=== PATIENT | female | born 1975 | race Two or more races ===

== ENCOUNTER → 2016-07-31 | Outpatient (CLI) | payer OTHER ==
--- NOTE | 2016-08-15 00:43 | ECWPNPC ---
PATIENT NAME: YEE COSTA : 1975 GENDER: FEMALE VISIT DATE: 07/31/2016 DISCHARGE DATE: 07/31/16 1328 VISIT LOCKED DATE TIME: PHYSICIAN: MANA GROSSMAN RESOURCE: MANA GROSSMAN REASON FOR APPOINTMENT 1. NECK, BACK WC HISTORY OF PRESENT ILLNESS NEW PATIENT CONSULT: WHEN DID YOUR PAIN FIRST START? . BRIEFLY DESCRIBE HOW YOUR PAIN STARTED? . HOW DOES YOUR PAIN CHANGE WITH TIME? . DOES YOUR PAIN AWAKEN YOU FROM SLEEP? . HOW MANY HOURS OF SLEEP DO YOU NORMALLY GET? . ANY DIAGNOSTIC TESTING? . FACILITY WHERE TESTS WERE DONE? ____. PAIN TREATMENT TREATMENT YES CANCER HAVE YOU EVER HAD ANY TYPE OF CANCER?NO NO. 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 REPORTS IMMEDIATE POPPING, HEADACHE AND PAIN IN NECK AND BACK. WAS ABLE TO FINISH SHIFT BUT WENT TO DOCTORS' AT THE NEXT DAY - WAS ORIGINALLY SEEN BY DR OSEGUERA, DR GALARZA AND Balaji ALCOCER. WAS TAKEN OUT OF WORK BY DR GALARZA. THEY DID PT AND SOME INJECTIONS. WAS THEN SEEN BY DR HUGGINS AT [facility] WHO DID SURGERY ON 10/21/14. HAD SIGNIFICANT POST OP PAIN AND A VERY SLOW RECOVERY. PRIOR TO SURGERY HAD PAIN RADIATING TO BOTH LEGS AND THIS IMPROVED AFTER SURGERY FOR A FEW MONTHS. PAIN BEGAN TO RETURN AND PAIN NOW RADIATES TO BOTH ANKLES. HIPS AREA PAIN IS THE WORST. DID PT X COURSES POST OP WITH COMPLETION [address] HUGGINS IS IN PROCESS OF UPDATING MRI'S OF NECK AND LOW BACK. HAS BEEN HAVING PAIN RADIATING TO ARMSTO BOTH HANDS TO THUMBS. DOES NOT RECALL HAVING A EMG/NCS FOR THE NECK OR LOW BACK ISSUE. HARDEST ACT ACTIVINY IS TO WALK UP STAIRS SECONDARY TO BACK PAIN. SLEEP IS DISRUPTED BY PAIN - GETS 1-2 HOURS SLEEP AT A TIME. NO LOSS OF BOWEL OR BLADDER CONTROL. HAD FALL DOWN STAIRS AT HOME IN LAST FEW MONTHS - INJURED RIGHT ANKLE AND SCRAPED HAND AND KNEES. REPORTS LYRICA IS HELPFUL FOR PAIN, IS BELUCA IS NOT EFFECTIVE. AMITRIPTYLINE HELPS WITH SLEEP. . CURRENT MEDICATIONS TAKING PREMPRO 0.625-5 MG TABLET 1 TABLET ORALLY ONCE A DAY TAKING METOPROLOL SUCCINATE ER 50 MG TABLET EXTENDED RELEASE 24 HOUR 1 TABLET ORALLY ONCE A DAY TAKING VENLAFAXINE HCL ER 150 MG CAPSULE EXTENDED RELEASE 24 HOUR 1 CAPSULE WITH FOOD ORALLY ONCE A DAY TAKING VENLAFAXINE HCL ER 37.5 MG TABLET EXTENDED RELEASE 24 HOUR 1 TABLET WITH FOOD ORALLY ONCE A DAY TAKING OMEPRAZOLE 40 MG CAPSULE DELAYED RELEASE 1 CAPSULE ORALLY ONCE A DAY TAKING ZYRTEC ALLERGY 10 MG TABLET 1 TABLET ORALLY ONCE A DAY TAKING SINGULAIR 10 MG TABLET 1 TABLET IN THE EVENING ORALLY ONCE A DAY TAKING VITAMIN D HIGH POTENCY 1000 UNIT CAPSULE 5 CAPSULE ORALLY ONCE A DAY TAKING HYDROXYZINE HCL 50 MG TABLET 1 TABLET NEEDED ORALLY BEFORE BEDTIME TAKING AMITRIPTYLINE HCL 25 MG TABLET 1 TABLET ORALLY BEFORE BEDTIME TAKING LYRICA 150 MG CAPSULE 1 CAPSULE ORALLY THREE TIMES DAILY TAKING BELBUCA 300 MCG FILM 1 FILM TO THE GUM BUCALLY EVERY 12 HRS TAKING TIZANIDINE HCL 2 MG TABLET 1 TABLET NEEDED ORALLY BEFORE BEDTIME TAKING HYDROCODONE-ACETAMINOPHEN 10-325 MG TABLET 1 TABLET NEEDED ORALLY EVERY 6 HRS TAKING TIZANIDINE HCL 2 MG TABLET 1 TABLET NEEDED ORALLY THREE TIMES A DAY TAKING ROBAXIN 500 MG TABLET 1 CAP ORALLY EVERY 4 HRS PRN TAKING ALBUTEROL SULFATE (5 MG/ML) 0.5% NEBULIZATION SOLUTION 0.5 ML INHALATION THREE TIMES A DAY PRN TAKING XANAX 0.5 MG TABLET 1 TABLET ORALLY TWICE A DAY PRN MEDICATION LIST REVIEWED AND RECONCILED WITH THE PATIENT PAST MEDICAL HISTORY HYPERTENSION ASTHMA GERD ARTHRITIS ALLERGIES N.K.D.A. SURGICAL HISTORY RIGHT HAND 4TH DIGIT TEND[facility] 08/1999 GASTRIC BYPASS ([facility]) 03/2000 CHOLECYSTECTOMY, HERNIA REPAIR ([facility]) 03/2000 HYSTEROSCOPY AND D & C X 4 ([facility]) [phone] HYSTEROSCOPY ([facility]) 2006 [facility] & O [facility] 08/2012 LUMBAR FUSION L4, L5, S1 WITH LAMINECTOMY, DECOMPRESSION ([facility]) 10/2014 COLPOSCOPY WITH BIOPSIES ([facility]) [id number] FAMILY HISTORY FATHER: NO MEDICAL HISTORY KNOWN MOTHER: 63 YRS, ETOH, DRUG ABUSE, HYPERLIPIDEMIA, DIAGNOSED WITH HYPERTENSION SIBLINGS: 2 SIBLINGS WITH UNKNOWN MEDICAL HISTORY SOCIAL HISTORY GENERAL: TOBACCO USE ARE YOU A:NONSMOKER ALCOHOL SCREENING POINTS4 INTERPRETATIONPOSITIVE RECREATIONAL DRUG USE DRUG USE?NO CAFFEINE: YES CAFFEINE USE?YES HOW OFTEN AND HOW MUCH? 2-3 C COFFEE PER DAY, 1 C TEA PER DAY ANGLICAN [id number] NONE LEARNING BARRIERS / SPECIAL NEEDS CHANGE FROM LAST VISIT?NO BARRIERS TO LEARNING?NO HEARING IMPAIRED?NO VISION IMPAIRED?YES :CORRECTIVE LENSES COGNITIVELY IMPAIRED?NO READINESS TO LEARN?NO LEARNING PREFERENCES?NO LEARNING CAPABILITIES PRESENT?NO EMOTIONAL BARRIERS?NO SPECIAL DEVICES?NO SHAREPOINT DESIGNER DEVELOPER NEEDED?NO PAIN CLINIC PFS, CLERGY, PUBLIC HEALTH REFERRALS CLERGY REFERRAL NEEDED?NO WAS THE PROVIDER NOTIFIED OF ANY PERTINENT INFO?NO PFS REFERRAL NEEDED?NO PUBLIC HEALTH REFERRAL NEEDED?NO PATIENT: ____. ADVANCED DIRECTIVES HEALTH CARE PROXY?YES NAME OF HCP JUDY COSTA CONTACT # FOR HCP [phone] DO YOU HAVE A COPY WITH YOU?NO DO YOU HAVE A DNR?NO WOULD YOU LIKE MORE INFORMATION?NO LIVING WILL?NO WOULD YOU LIKE MORE INFORMATION?NO POWER OF CLINICAL RESOURCE NURSE?NO HOSPITALIZATION/MAJOR DIAGNOSTIC PROCEDURE SURGERIES REVIEW OF SYSTEMS CONSTITUTIONAL: ANY CHANGE IN YOUR MEDICAL CONDITION? NO . CHILLS NO . FEVER NO . INFECTION: DO YOU HAVE NEW INFECTIONS? NO . 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 MUSCULOSKELETAL: ANY NEW PATTERNS OF PAIN OR NUMBNESS? NO . SYTEMIC LUPUS NO . GASTROENTEROLOGY: ANY NEW CHANGE IN BOWEL CONTROL? NO . BARRETTS ESOPHAGUS NO . CIRRHOSIS NO . HEPATITIS NO . LIVER FAILURE NO . ACID REFLUX YES . UNEXPLAINED WEIGHT LOSS NO . GENITOURINARY: ANY NEW CHANGE IN BLADDER CONTROL? NO . IS THERE A CHANCE YOU COULD BE ? NO . HEMATOLOGY/LYMPH: DO YOU TAKE ANY BLOOD THINNERS? (FOR EXAMPLE- COUMADIN, PLAVIX, AGGRENOX, PLATEL, PRADAXA, OR XARELTO) NO . WHEN WAS YOUR LAST DOSE? DATE: TIME: . LOW PLATELET COUNT NO . SICKLE CELL DISEASE NO . VON WILLIEBRANDS NO . FACTOR V LEIDEN NO . THALLASEMIA NO . ANEMIA NO . EASY BRUISING YES, ON ARMS AND LEGS, STATES HAS NEVER SEEN A GREEN WARE CASTER, STATES HAS HAD THIS FOR A LONG TIME, ARMS AND LEGS, NOT ON ANTICOAGULANTS, SPONTANEOUS, TRUNK . NEUROLOGY: HAVE YOU FALLEN IN THE PAST 6 MONTHS? YES . ANY NEW EXTREMITY NUMBNESS OR WEAKNESS? NO . HEAD INJURY NO . DEMENTIA NO . CEREBRAL PALSY NO . MULTIPLE SCLEROSIS NO . DIZZINESS NO . HEADACHE ASSOCIATED WITH NAUSEA, ASSOCIATED WITH PHOTOPHOBIA, BILATERAL, BITEMPORAL , DIFFUSE, DULL ACHE, FRONTAL, INFREQUENT , MILD, OCCIPITAL, PRESSURE, TEMPORAL, ADMITS, THROBBING . STROKES NO . VERTIGO NO . CARDIOLOGY: DO YOU HAVE A PACEMAKER OR DEFIBRILLATOR? NO . ANGINA NO . HEART ATTACK NO . HEART SURGERY NO . CONGESTIVE HEART FAILURE/FLUID OVERLOAD NO . CHEST PAIN NO . HIGH BLOOD PRESSURE ON MEDICATION(S) . IRREGULAR HEART BEAT NO . RESPIRATORY: HAVE YOU BEEN SICK IN THE PAST WEEK? NO . FEVER NO . FLU LIKE SYMPTOMS? NO . CPAP NO . BYPAP NO . ASTHMA YES . EMPHYSEMA NO . CHRONIC LUNG DISEASES NO . SHORTNESS OF BREATH ON EXERTION YES . DO YOU USE ANY TYPE OF TOBACCO (SMOKE, SMOKELESS, CHEW)? NO . COUGH NO . SNORING YES . INTEGUMENTARY: DO YOU HAVE ANY RASHES OR OPEN SORES? NO . ALLERGIC/IMMUNO: ARE YOU ALLERGIC TO SHELLFISH OR IV DYE? NO . ANY NEW ALLERGIES? NO . PSYCHIATRIC: DO YOU HAVE THOUGHTS OF HURTING YOURSELF OR SOMEONE ELSE? NO . ARE YOU ABUSED, NEGLECTED, OR IN AN UNSAFE ENVIRONMENT? NO . ENDOCRINOLOGY: ARE YOU DIABETIC? NO . THYROID DISORDER NO . OTHER: DO YOU NEED ANY PRESCRIPTIONS? NO . IF YES, PLEASE LIST: ____ . ANY NEW PROBLEMS WITH YOUR MEDICATIONS? NO . WHEN DID YOU LAST EAT? ____ . WHEN DID YOU LAST DRINK? ____ . WHAT DID YOU LAST DRINK? ____ . NAME OF PERSON DRIVING YOU HOME? ____ . DO YOU HAVE ANY OTHER QUESTIONS OR CONCERNS NO . PSYCHOLOGY: ANXIETY ASSOCIATED WITH:, UNABLE TO CARE FOR FAMILY, UNABLE TO WORK . DEPRESSION AFFECTS ABILITY TO FUNCTION . REVIEWED BY: PROVIDER: MANA DAVILA . VITAL SIGNS WT 319.4 LBS, HT 65 IN, BMI 53.15 INDEX, BP 147/90 MM HG, HR 77 /MIN, RR 16 /MIN, TEMP 97.8 F, OXYGEN SAT % 97%, NA INITIALS SC 11:45, REVIEWED BY: JAVAD. EXAMINATION GENERAL EXAMINATION: PSYCHALERT , ORIENTED X 3 , APPROPRIATE MOOD AND AFFECT . HEENT:NORMOCEPHALIC. NO LYMPHADENOPATHY, NO THYROMEGLY. HEART:HEART RATE REGULAR, NORMAL S1S2, NO MURMURS, CLICK OR RUBS. MUSCULOSKELETAL:MUSCLE STRENGTH TESTING 5/5 BILATERAL UPPER NAD LOWER EXTREMITIES. TENDER WITH PALPATION OVER LUMBAR SPINOUS PROCESSES AND ACROSS LUMBO SACRAL AXIS. ABLE TO FLEX TO 30 DEGREES, EXTEND TO 10 DEGREES, AND EXPERIENCE PAIN WITH ROTATION TO EITH DIRECTION. SLR NEGATIVE. NO SPECIFIC PAIN WITH PELVIS COMPRESS OR WITH PATRICKS TESTING. . EXTREMITIES:NO EDEMA. NEUROLOGIC EXAM:NO SENSORY DEFICEIT. DTR'S 2+ LEFT, TRACE RIGHT LOWER EXTREMITES. DIAGNOSTIC TESTS REVIEWEDMRI OF LUMBAR SPINE COMPLETED 04/02/15 REVIEWED. ASSESSMENTS LUMBAR POST-LAMINECTOMY SYNDROME - M96.1 (PRIMARY) LUMBAR RADICULOPATHY - M54.16 CERVICAL DISC DISPLACEMENT - M50.20 TREATMENT LUMBAR POST-LAMINECTOMY SYNDROME START LYRICA CAPSULE, 150 MG, 1 CAPSULE, ORALLY, THREE TIMES DAILY MDD=3, 30 DAY(S), 90, REFILLS 1 NOTES: CONSIDER WEANING/STOPPING BELBUCA/AMITRIPTINE/HYDROCODONE. CONSIDER MOVING FORWARD WITH DORSAL COLUMN STIM. PROCEDURES PN WORKMANS' COMP OPINION IN YOUR OPINION, WAS THE INCIDENT THAT THE PATIENT DESCRIBED THE COMPETENT MEDICAL CAUSE OF THIS INJURY/ILLNESS? YES ARE THE PATIENT'S COMPLAINTS CONSISTENT WITH HIS/HER HISTORY OF THE INJURY/ILLNESS? YES IS THE PATIENT'S HISTORY OF THE INJURY/ILLNESS CONSISTENT WITH YOUR OBJECTIVE FINDING? YES WHAT IS THE PERCENTAGE OF TEMPORARY IMPAIRMENT? MARKED = 75% IS THE PATIENT WORKING? NO PER REFERRING PROVIDER DOCTOR ON SITE: KRISTEN STORY MD PROCEDURE CODES FA211 ESTABILISHED PATIENT [facility] FACILITY CHARGE DISPOSITION & COMMUNICATION FOLLOW UP WC -[address] HERNDON (REASON: LOW BACK/NECK) ELECTRONICALLY SIGNED BY NAM MARCOS ON 08/14/2016 AT 07:47 PM EDT DISCLAIMER : THIS IS A VISIT SUMMARY EXTRACTED FROM THE [employer] CHART. IT IS NOT A COPY OF THE [employer] PROGRESS NOTE. DAVID
== END ==
LOC: M PAIN 11:20
PROVIDERS: ATTEND Nurse Practitioner Family
DX: M96.1 Postlaminectomy syndrome, not elsewhere classified (principal); M54.16 Radiculopathy, lumbar region; M50.20 Other cervical disc displacement, unspecified cervical region; Z79.891 Long term (current) use of opiate analgesic; Z79.899 Other long term (current) drug therapy; I10 Essential (primary) hypertension; K21.9 Gastro-esophageal reflux disease without esophagitis; J45.909 Unspecified asthma, uncomplicated

== ENCOUNTER → 2016-08-27 | Outpatient (CLI) | payer OTHER ==
--- NOTE | 2016-09-07 01:03 | ECWPNPC ---
PATIENT NAME: YEE COSTA : 1975 GENDER: FEMALE VISIT DATE: 08/27/2016 DISCHARGE DATE: 08/27/16 1551 VISIT LOCKED DATE TIME: PHYSICIAN: KRISTEN HERNDON RESOURCE: KRISTEN HERNDON REASON FOR APPOINTMENT 1. WC, BACK PAIN HISTORY OF PRESENT ILLNESS HISTORY OF PRESENT ILLNESS: PAIN THE PATIENT DESCRIBES THE PAIN... 41 YEAR OLD FEMALE PATIENT WITH HISTORY OF CHRONIC LOW BACK AND NECK PAIN. PATIENT DESCRIBES THE PAIN ACHING, SHARP, STABBING, SORE, AND HAVING IT ALL THE TIME WITH A PAIN SCORE OF 5/10. 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 MRS. COSTA WAS HELPING ANOTHER NURSE IN THE BATHROOM WITH A PATIENT AND COWORKER MOVED THE PATIENT BEFORE MRS. COSTA WAS READY AND HAD TO TWIST AND THEN HEARD POPPING AND SNAPS IN HER BACK AND NECK. PATIENT USED IBUPROFEN TO HELP WITH PAIN UNTIL SHE WENT TO THE DOCTOR AND HAD XRAYS AND WAS TAKEN OUT OF WORK ROUGHLY 6 WEEKS LATER. PATIENT REPORTS HAVING INJECTIONS BEFORE BUT STATES THAT THEY DO NOT WORK AND ACTUALLY CAUSED HER LEG PAIN. PHYSICAL THERAPY DID NOT AID THE PATIENT IN PAIN RELIEF OR MOBILITY AND FUNCTIONALITY. CURRENTLY PATIENT IS USING LYRICA, BELBUCA, AND TIZANIDINE AND STATES THAT THE MEDICATION KEEPS HER MOBILE AND FUNCTIONAL. AT THIS TIME THE PATIENT STATES THAT ANY TYPE OF ACTIVITY INCREASES THE PAIN IN HER NECK AND LOWER BACK. PATIENT DENIES UNEXPLAINABLE WEIGHT LOSS, FEVER, CHILLS, NEW CHANGES ON HER URINARY OR BOWEL CONTROL. FALL RISK SCREENING: SCREENING :NO FALLS IN THE PAST YEAR CURRENT MEDICATIONS TAKING LYRICA 150 MG CAPSULE 1 CAPSULE ORALLY THREE TIMES DAILY MDD=3 TAKING PREMPRO 0.625-5 MG TABLET 1 TABLET ORALLY ONCE A DAY TAKING METOPROLOL SUCCINATE ER 50 MG TABLET EXTENDED RELEASE 24 HOUR 1 TABLET ORALLY ONCE A DAY TAKING VENLAFAXINE HCL ER 150 MG CAPSULE EXTENDED RELEASE 24 HOUR 1 CAPSULE WITH FOOD ORALLY ONCE A DAY TAKING VENLAFAXINE HCL ER 37.5 MG TABLET EXTENDED RELEASE 24 HOUR 1 TABLET WITH FOOD ORALLY ONCE A DAY TAKING OMEPRAZOLE 40 MG CAPSULE DELAYED RELEASE 1 CAPSULE ORALLY ONCE A DAY TAKING ZYRTEC ALLERGY 10 MG TABLET 1 TABLET ORALLY ONCE A DAY TAKING SINGULAIR 10 MG TABLET 1 TABLET IN THE EVENING ORALLY ONCE A DAY TAKING VITAMIN D HIGH POTENCY 1000 UNIT CAPSULE 5 CAPSULE ORALLY ONCE A DAY TAKING HYDROXYZINE HCL 50 MG TABLET 1 TABLET NEEDED ORALLY BEFORE BEDTIME TAKING LYRICA 150 MG CAPSULE 1 CAPSULE ORALLY THREE TIMES DAILY TAKING BELBUCA 300 MCG FILM 1 FILM TO THE GUM BUCALLY EVERY 12 HRS, NOTES: HAS BEEN TAKING SPARINGLY TAKING TIZANIDINE HCL 4 MG TABLET 1 TABLET NEEDED ORALLY BEFORE BEDTIME TAKING TIZANIDINE HCL 2 MG TABLET 1 TABLET NEEDED ORALLY THREE TIMES A DAY TAKING ROBAXIN 500 MG TABLET 1 CAP ORALLY EVERY 4 HRS PRN TAKING ALBUTEROL SULFATE (5 MG/ML) 0.5% NEBULIZATION SOLUTION 0.5 ML INHALATION THREE TIMES A DAY PRN TAKING XANAX 0.5 MG TABLET 1 TABLET ORALLY TWICE A DAY PRN TAKING VOLTAREN 1 % GEL DIRECTED TRANSDERMAL APPLY 4 GRAMS TO PAINFUL AREA OF LOW BACK EVERY 6 HOURS NEEDED TAKING TOPAMAX 50 MG TABLET 1 TABLET ORALLY EVERY BEDTIME TAKING PHENTERMINE HCL 15 MG CAPSULE 1 CAPSULE ORALLY ONCE A DAY TAKING FLONASE ALLERGY RELIEF 50 MCG/ACT SUSPENSION 1 SPRAY IN EACH NOSTRIL NASALLY TWICE A DAY NOT-TAKING AMITRIPTYLINE HCL 25 MG TABLET 1 TABLET ORALLY BEFORE BEDTIME NOT-TAKING HYDROCODONE-ACETAMINOPHEN 10-325 MG TABLET 1 TABLET NEEDED ORALLY EVERY 6 HRS MEDICATION LIST REVIEWED AND RECONCILED WITH THE PATIENT PAST MEDICAL HISTORY HYPERTENSION ASTHMA GERD ARTHRITIS ALLERGIES ENVIRONMENTAL: NASAL CONGESTION: ALLERGY SURGICAL HISTORY RIGHT HAND 4TH DIGIT TEND[facility] 08/1999 [facility] BYPASS ([facility]) 03/2000 CHOLECYSTECTOMY, HERNIA REPAIR ([facility]) 03/2000 HYSTEROSCOPY AND D & C X 4 ([facility]) [phone] HYSTEROSCOPY ([facility]) 2006 HYSTERECTOMY WITH BILATERAL S & O ([facility]) 08/2012 LUMBAR FUSION L4, L5, S1 WITH LAMINECTOMY, DECOMPRESSION ([facility]) 10/2014 COLPOSCOPY WITH BIOPSIES ([facility]) [phone] FAMILY HISTORY FATHER: NO MEDICAL HISTORY KNOWN MOTHER: 63 YRS, ETOH, DRUG ABUSE, HYPERLIPIDEMIA, DIAGNOSED WITH HYPERTENSION SIBLINGS: 2 SIBLINGS WITH UNKNOWN MEDICAL HISTORY SOCIAL HISTORY GENERAL: TOBACCO USE ARE YOU A:NONSMOKER ALCOHOL SCREENING DID YOU HAVE A DRINK CONTAINING ALCOHOL IN THE PAST YEAR?YES HOW OFTEN DID YOU HAVE A DRINK CONTAINING ALCOHOL IN THE PAST YEAR?MONTHLY OR LESS (1 POINT) HOW MANY DRINKS DID YOU HAVE ON A TYPICAL DAY WHEN YOU WERE DRINKING IN THE PAST YEAR?5 OR 6 (2 POINTS) HOW OFTEN DID YOU HAVE SIX OR MORE DRINKS ON ONE OCCASION IN THE PAST YEAR?LESS THAN MONTHLY (1 POINT) POINTS4 INTERPRETATIONPOSITIVE RECREATIONAL DRUG USE DRUG USE?NO CAFFEINE: YES CAFFEINE USE?YES HOW OFTEN AND HOW MUCH? 2-3 C COFFEE PER DAY, 1 C TEA PER DAY ZOROASTRIANISM [id number] NONE LEARNING BARRIERS / SPECIAL NEEDS CHANGE FROM LAST VISIT?NO BARRIERS TO LEARNING?NO HEARING IMPAIRED?NO VISION IMPAIRED?YES :CORRECTIVE LENSES COGNITIVELY IMPAIRED?NO READINESS TO LEARN?NO LEARNING PREFERENCES?NO LEARNING CAPABILITIES PRESENT?NO EMOTIONAL BARRIERS?NO SPECIAL DEVICES?NO RADIO INTERFERENCE SUPERVISOR NEEDED?NO PAIN CLINIC PFS, CLERGY, PUBLIC HEALTH REFERRALS CLERGY REFERRAL NEEDED?NO WAS THE PROVIDER NOTIFIED OF ANY PERTINENT INFO?NO PFS REFERRAL NEEDED?NO PUBLIC HEALTH REFERRAL NEEDED?NO PATIENT: ____. [facility]VANCE DIRECTIVES HEALTH CARE PROXY?YES NAME OF HCP JUDY JOVANAALISHA CONTACT # FOR HCP [phone] DO YOU HAVE A COPY WITH YOU?NO DO YOU HAVE A DNR?NO WOULD YOU LIKE MORE INFORMATION?NO LIVING WILL?NO WOULD YOU LIKE MORE INFORMATION?NO POWER OF IC DESIGN MANAGER?NO HOSPITALIZATION/MAJOR DIAGNOSTIC PROCEDURE SURGERIES REVIEW OF SYSTEMS REVIEWED BY: PROVIDER: KRISTEN HERNDON MD . CONSTITUTIONAL: ANY CHANGE IN YOUR MEDICAL CONDITION? NO . CHILLS NO . FEVER NO . INFECTION: DO YOU HAVE NEW INFECTIONS? NO . DO YOU HAVE HISTORY OF MRSA? NO . MUSCULOSKELETAL: ANY NEW PATTERNS OF PAIN OR NUMBNESS? YES, THOBBING PAIN IN LEGS . GASTROENTEROLOGY: ANY NEW CHANGE IN BOWEL CONTROL? NO . GENITOURINARY: ANY NEW CHANGE IN BLADDER CONTROL? NO . IS THERE A CHANCE YOU COULD BE ? NO . HEMATOLOGY/LYMPH: DO YOU TAKE ANY BLOOD THINNERS? (FOR EXAMPLE- COUMADIN, PLAVIX, AGGRENOX, PLATEL, PRADAXA, OR XARELTO) NO . WHEN WAS YOUR LAST DOSE? DATE: TIME: . NEUROLOGY: HAVE YOU FALLEN IN THE PAST 6 MONTHS? NO . ANY NEW EXTREMITY NUMBNESS OR WEAKNESS? NO . CARDIOLOGY: DO YOU HAVE A PACEMAKER OR DEFIBRILLATOR? NO . RESPIRATORY: HAVE YOU BEEN SICK IN THE PAST WEEK? NO . FEVER NO . FLU LIKE SYMPTOMS? NO . COUGH NO . INTEGUMENTARY: DO YOU HAVE ANY RASHES OR OPEN SORES? NO . ALLERGIC/IMMUNO: ARE YOU ALLERGIC TO SHELLFISH OR IV DYE? NO . ANY NEW ALLERGIES? NO . PSYCHIATRIC: DO YOU HAVE THOUGHTS OF HURTING YOURSELF OR SOMEONE ELSE? NO . ARE YOU ABUSED, NEGLECTED, OR IN AN UNSAFE ENVIRONMENT? NO . ENDOCRINOLOGY: ARE YOU DIABETIC? NO . OTHER: DO YOU NEED ANY PRESCRIPTIONS? YES . IF YES, PLEASE LIST: BELBUCA 300 MG FILM #60, TIZANIDINE 4 MG #60, ROBAXIN 500 MG #60 . ANY NEW PROBLEMS WITH YOUR MEDICATIONS? NO . WHEN DID YOU LAST EAT? ____ . WHEN DID YOU LAST DRINK? ____ . WHAT DID YOU LAST DRINK? ____ . NAME OF PERSON DRIVING YOU HOME? ____ . DO YOU HAVE ANY OTHER QUESTIONS OR CONCERNS NO . VITAL SIGNS WT 316.0 LBS, HT 65 IN, BMI 52.58 INDEX, BP 121/80 MM HG, HR 78 /MIN, RR 16 /MIN, TEMP 97.6 F, OXYGEN SAT % 96%, NA INITIALS TL 1434, REVIEWED BY: JAVAD. EXAMINATION : PATIENT IS ALERT O X 3 AND COOPERATIVE. ANTALGIC GAIT. DIFFICULTIES STANDING. ABLE TO FLEX 90 DEGREES AND EXTEND 10 DEGREES. TENDERNESS IN THE LOWER BACK AND PARASPINAL MUSCLE GROUP. RIGHT LEG IS WEAKER THEN THE LEFT AT EXTENSION AND FLEXION. MRI DONE ON 04/02/2015 OF THE LUMBAR SPINE SHOWS POST LAMINECTOMY CHANGES AND A DISC BULGE AT L3-L4. ASSESSMENTS POSTLAMINECTOMY SYNDROME, NOT ELSEWHERE CLASSIFIED - M96.1 (PRIMARY) INTERVERTEBRAL DISC DISORDERS WITH RADICULOPATHY, LUMBAR REGION - M51.16 TREATMENT POSTLAMINECTOMY SYNDROME, NOT ELSEWHERE CLASSIFIED NOTES: WE DICUSSED SEVERAL ISSUES WITH MRS. COSTA'S PAIN MANAGEMENT CASE. AT THIS TIME THE PATIENT WILL CONTINUE WITH THE SAME MEDICATION REGIME BEFORE. PATIENT WILL CONTINUE TO USE THE TIZANIDINE FOR THE MUSCLE SPASMS, ROBAXIN FOR THE MUSCLE STIFFNESS, AND BELBUCA FOR THE SOMATIC PAIN. PATIENT DENIES ABUSE OF ANY MEDICATION, DENIES USE OF ILLEGAL SUBSTANCES, AND STATES SHE IS ONLY USING THE MEDICATION FOR PAIN MANAGEMENT. AT THIS TIME THE PATIENT STATES THAT INTERVENTIONS DO NOT AID IN PAIN RELIEF AND DOES NOT WANT TO MOVE FORWARD WITH ANY AT THIS TIME. WE BRIEFLY DISCUSSED THE DCS BUT THE PATIENT DOES NOT WANT TO MOVE FORWARD WITH IT AT THIS TIME. PATIENT WILL RETURN TO THE CLINIC IN 3 WEEKS. INSTRUCTIONS WERE GIVEN, QUESTIONS WERE ANSWERED, PATIENT REPORTS UNDERSTANDING AND AGREES WITH THE PLAN. I, TOSHIA DAY, DOCUMENTED THE ABOVE INFORMATION ACTING A SCRIBE FOR DR. HERNDON. I HAVE REVIEWED THE ABOVE DOCUMENT, WRITTEN BY TOSHIA NGUYEN AND I VERIFY THAT IT IS ACCURATE. OTHERS REFILL TIZANIDINE HCL TABLET, 4 MG, 1 TABLET NEEDED, ORALLY, BEFORE BEDTIME MAY REPEAT IN 5 HRS, 30 DAY(S), 45, REFILLS 1 REFILL ROBAXIN TABLET, 500 MG, 1 CAP, ORALLY, EVERY 4 HRS PRN FOR SPASMS AND PAIN MDD2, 30 DAY(S), 50, REFILLS 2 REFILL BELBUCA FILM, 300 MCG, 1 FILM TO THE GUM, BUCALLY, EVERY 12 HRS, 30 DAY(S), 60, REFILLS 0, NOTES: HAS BEEN TAKING SPARINGLY PROCEDURE CODES FA211 ESTABILISHED PATIENT [facility] FACILITY CHARGE G9227 DOC MEDS VERIFIED W/PT OR RE G4816 PAIN ASSESS POS TOOL F/U PLAN DOC DISPOSITION & COMMUNICATION FOLLOW UP 3 WEEKS ELECTRONICALLY SIGNED BY KRISTEN HERNDON MD ON 09/06/2016 AT 10:37 AM EDT DISCLAIMER : THIS IS A VISIT SUMMARY EXTRACTED FROM THE [employer] CHART. IT IS NOT A COPY OF THE [employer] PROGRESS NOTE. MTDD
== END ==
LOC: M PAIN 14:20
PROVIDERS: ATTEND Anesthesiology
DX: M96.1 Postlaminectomy syndrome, not elsewhere classified (principal); M51.16 Intervertebral disc disorders with radiculopathy, lumbar region; Z79.899 Other long term (current) drug therapy; Z79.818 Long term (current) use of other agents affecting estrogen receptors and estrogen levels; J30.9 Allergic rhinitis, unspecified

== ENCOUNTER → 2016-09-19 | Outpatient (CLI) | payer OTHER ==
--- NOTE | 2016-10-01 00:02 | ECWPNPC ---
PATIENT NAME: YEE COSTA : 1975 GENDER: FEMALE VISIT DATE: 09/19/2016 DISCHARGE DATE: 09/19/16 1558 VISIT LOCKED DATE TIME: PHYSICIAN: KRISTEN HERNDON RESOURCE: KRISTEN HERNDON REASON FOR APPOINTMENT 1. W/C BACK HISTORY OF PRESENT ILLNESS HISTORY OF PRESENT ILLNESS: PAIN THE PATIENT DESCRIBES THE PAIN... 41 YEAR OLD FEMALE PATIENT WITH HISTORY OF CHRONIC LOW BACK AND NECK PAIN. PATIENT DESCRIBES THE PAIN ACHING, SHARP, STABBING, SORE, AND HAVING IT ALL THE TIME WITH A PAIN SCORE OF 5/10. 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 MRS. COSTA WAS HELPING ANOTHER NURSE IN THE BATHROOM WITH A PATIENT AND COWORKER MOVED THE PATIENT BEFORE MRS. COSTA WAS READY AND HAD TO TWIST AND THEN HEARD POPPING AND SNAPS IN HER BACK AND NECK. PATIENT USED IBUPROFEN TO HELP WITH PAIN UNTIL SHE WENT TO THE DOCTOR AND HAD XRAYS AND WAS TAKEN OUT OF WORK ROUGHLY 6 WEEKS LATER. PATIENT STATES THAT ANY TYPE OF ACTIVITY INCLUDING STANDING, SITTING, AND WALKING INCREASES THE PAIN IN HER LOWER BACK. AT THIS TIME THE PATIENT IS USING BELBUCA, TIZANIDINE, ROBAXIN AND LYRICA FOR PAIN MANAGEMENT AND STATES THE MEDICATIONS KEEP HER MOBILE AND FUNCTIONAL. PATIENT DENIES UNEXPLAINABLE WEIGHT LOSS, FEVER, CHILLS, NEW CHANGES ON HER URINARY OR BOWEL CONTROL. FALL RISK SCREENING: SCREENING :NO FALLS IN THE PAST YEAR CURRENT MEDICATIONS TAKING TIZANIDINE HCL 4 MG TABLET 1 TABLET NEEDED ORALLY BEFORE BEDTIME MAY REPEAT IN 5 HRS TAKING ROBAXIN 500 MG TABLET 1 CAP ORALLY EVERY 4 HRS PRN FOR SPASMS AND PAIN MDD2 TAKING BELBUCA 300 MCG FILM 1 FILM TO THE GUM BUCALLY EVERY 12 HRS, NOTES: HAS BEEN TAKING SPARINGLY TAKING LYRICA 150 MG CAPSULE 1 CAPSULE ORALLY THREE TIMES DAILY MDD=3 TAKING PREMPRO 0.625-5 MG TABLET 1 TABLET ORALLY ONCE A DAY TAKING METOPROLOL SUCCINATE ER 50 MG TABLET EXTENDED RELEASE 24 HOUR 1 TABLET ORALLY ONCE A DAY TAKING VENLAFAXINE HCL ER 150 MG CAPSULE EXTENDED RELEASE 24 HOUR 1 CAPSULE WITH FOOD ORALLY ONCE A DAY TAKING VENLAFAXINE HCL ER 37.5 MG TABLET EXTENDED RELEASE 24 HOUR 1 TABLET WITH FOOD ORALLY ONCE A DAY TAKING OMEPRAZOLE 40 MG CAPSULE DELAYED RELEASE 1 CAPSULE ORALLY ONCE A DAY TAKING ZYRTEC ALLERGY 10 MG TABLET 1 TABLET ORALLY ONCE A DAY TAKING SINGULAIR 10 MG TABLET 1 TABLET IN THE EVENING ORALLY ONCE A DAY TAKING VITAMIN D HIGH POTENCY 1000 UNIT CAPSULE 5 CAPSULE ORALLY ONCE A DAY TAKING HYDROXYZINE HCL 50 MG TABLET 1 TABLET NEEDED ORALLY BEFORE BEDTIME TAKING ALBUTEROL SULFATE (5 MG/ML) 0.5% NEBULIZATION SOLUTION 0.5 ML INHALATION THREE TIMES A DAY PRN TAKING XANAX 0.5 MG TABLET 1 TABLET ORALLY TWICE A DAY PRN TAKING VOLTAREN 1 % GEL DIRECTED TRANSDERMAL APPLY 4 GRAMS TO PAINFUL AREA OF LOW BACK EVERY 6 HOURS NEEDED TAKING TOPAMAX 50 MG TABLET 1 TABLET ORALLY EVERY BEDTIME TAKING PHENTERMINE HCL 15 MG CAPSULE 1 CAPSULE ORALLY ONCE A DAY TAKING FLONASE ALLERGY RELIEF 50 MCG/ACT SUSPENSION 1 SPRAY IN EACH NOSTRIL NASALLY TWICE A DAY NOT-TAKING LYRICA 150 MG CAPSULE 1 CAPSULE ORALLY THREE TIMES DAILY NOT-TAKING TIZANIDINE HCL 2 MG TABLET 1 TABLET NEEDED ORALLY THREE TIMES A DAY NOT-TAKING AMITRIPTYLINE HCL 25 MG TABLET 1 TABLET ORALLY BEFORE BEDTIME NOT-TAKING HYDROCODONE-ACETAMINOPHEN 10-325 MG TABLET 1 TABLET NEEDED ORALLY EVERY 6 HRS MEDICATION LIST REVIEWED AND RECONCILED WITH THE PATIENT PAST MEDICAL HISTORY HYPERTENSION ASTHMA GERD ARTHRITIS ALLERGIES ENVIRONMENTAL: NASAL CONGESTION: ALLERGY REVIEW OF SYSTEMS REVIEWED BY: PROVIDER: KRISTEN HERNDON MD . CONSTITUTIONAL: ANY CHANGE IN YOUR MEDICAL CONDITION? NO . CHILLS NO . FEVER NO . INFECTION: DO YOU HAVE NEW INFECTIONS? NO . DO YOU HAVE HISTORY OF MRSA? NO . MUSCULOSKELETAL: ANY NEW PATTERNS OF PAIN OR NUMBNESS? NO . GASTROENTEROLOGY: ANY NEW CHANGE IN BOWEL CONTROL? NO . GENITOURINARY: ANY NEW CHANGE IN BLADDER CONTROL? NO . IS THERE A CHANCE YOU COULD BE ? NO . HEMATOLOGY/LYMPH: DO YOU TAKE ANY BLOOD THINNERS? (FOR EXAMPLE- COUMADIN, PLAVIX, AGGRENOX, PLATEL, PRADAXA, OR XARELTO) NO . WHEN WAS YOUR LAST DOSE? DATE: TIME: . NEUROLOGY: HAVE YOU FALLEN IN THE PAST 6 MONTHS? NO . ANY NEW EXTREMITY NUMBNESS OR WEAKNESS? NO . CARDIOLOGY: DO YOU HAVE A PACEMAKER OR DEFIBRILLATOR? NO . RESPIRATORY: HAVE YOU BEEN SICK IN THE PAST WEEK? NO . FEVER NO . FLU LIKE SYMPTOMS? NO . COUGH NO . INTEGUMENTARY: DO YOU HAVE ANY RASHES OR OPEN SORES? NO . ALLERGIC/IMMUNO: ARE YOU ALLERGIC TO SHELLFISH OR IV DYE? NO . ANY NEW ALLERGIES? NO . PSYCHIATRIC: DO YOU HAVE THOUGHTS OF HURTING YOURSELF OR SOMEONE ELSE? NO . ARE YOU ABUSED, NEGLECTED, OR IN AN UNSAFE ENVIRONMENT? NO . ENDOCRINOLOGY: ARE YOU DIABETIC? NO . OTHER: DO YOU NEED ANY PRESCRIPTIONS? NO . IF YES, PLEASE LIST: ____ . ANY NEW PROBLEMS WITH YOUR MEDICATIONS? NO . WHEN DID YOU LAST EAT? ____ . WHEN DID YOU LAST DRINK? ____ . WHAT DID YOU LAST DRINK? ____ . NAME OF PERSON DRIVING YOU HOME? ____ . DO YOU HAVE ANY OTHER QUESTIONS OR CONCERNS NO . EXAMINATION : PATIENT IS ALERT O X 3 AND COOPERATIVE. ANTALGIC GAIT. DIFFICULTIES STANDING. LIMPING FROM RIGHT SIDE. ABLE TO FLEX 90 DEGREES AND EXTEND 10 DEGREES. TENDERNESS IN THE LOWER BACK AND PARASPINAL MUSCLE GROUP. RIGHT LEG IS WEAKER THEN THE LEFT AT EXTENSION AND FLEXION. MRI DONE ON 04/02/2015 OF THE LUMBAR SPINE SHOWS POST LAMINECTOMY CHANGES AND A DISC BULGE AT L3-L4. ASSESSMENTS LUMBAR POST-LAMINECTOMY SYNDROME - M96.1 (PRIMARY) INTERVERTEBRAL DISC DISORDERS WITH RADICULOPATHY, LUMBAR REGION - M51.16 TREATMENT LUMBAR POST-LAMINECTOMY SYNDROME REFILL LYRICA CAPSULE, 150 MG, 1 CAPSULE, ORALLY, THREE TIMES DAILY MDD=3, 30 DAY(S), 90, REFILLS 1 NOTES: WE DICUSSED SEVERAL ISSUES WITH MRS. COSTA'S PAIN MANAGEMENT CASE. AT THIS TIME THE PATIENT WILL CONTINUE WITH THE SAME MEDICATION REGIME BEFORE. PATIENT WILL CONTINUE TO USE THE TIZANIDINE FOR THE MUSCLE SPASMS, ROBAXIN FOR THE MUSCLE STIFFNESS, AND BELBUCA FOR THE SOMATIC PAIN. PATIENT DENIES ABUSE OF ANY MEDICATION, DENIES USE OF ILLEGAL SUBSTANCES, AND STATES SHE IS ONLY USING THE MEDICATION FOR PAIN MANAGEMENT. PATIENT WILL SIGN A NARCOTIC AGREEMENT AND PERFORM A URINE TOXICOLOGY SAMPLE TODAY. WE DISCUSSED DCS AGAIN AT THIS VISIT. PATIENT WAS GIVEN THE INFORMATION FROM [facility]. PATIENT IS A CANDIDATE FOR A SACROILIAC JOINT BLOCK BUT THE PATIENT WOULD LIKE TO HOLD OFF ON INTERVENTIONS SHE STATES SHE DOES NOT GET ADEQUATE RELIEF, PATIENT WILL RETURN TO THE CLINIC IN 4 WEEKS. INSTRUCTIONS WERE GIVEN, QUESTIONS WERE ANSWERED, PATIENT REPORTS UNDERSTANDING AND AGREES WITH THE PLAN. I, TOSHIA DAY, DOCUMENTED THE ABOVE INFORMATION ACTING A SCRIBE FOR DR. HERNDON. I HAVE REVIEWED THE ABOVE DOCUMENT, WRITTEN BY TOSHIA NGUYEN AND I VERIFY THAT IT IS ACCURATE. OTHERS CONTINUE TIZANIDINE HCL TABLET, 4 MG, 1 TABLET NEEDED, ORALLY, BEFORE BEDTIME MAY REPEAT IN 5 HRS MDD2, 30 DAY(S), 60, REFILLS 2 REFILL ROBAXIN TABLET, 500 MG, 1 CAP, ORALLY, EVERY 4 HRS PRN FOR SPASMS AND PAIN MDD2, 30 DAY(S), 50, REFILLS 2 REFILL BELBUCA FILM, 300 MCG, 1 FILM TO THE GUM, BUCALLY, EVERY 12 HRS, 30 DAY(S), 60, REFILLS 0 PROCEDURES PN WORKMANS' COMP OPINION IN YOUR OPINION, WAS THE INCIDENT THAT THE PATIENT DESCRIBED THE COMPETENT MEDICAL CAUSE OF THIS INJURY/ILLNESS? YES ARE THE PATIENT'S COMPLAINTS CONSISTENT WITH HIS/HER HISTORY OF THE INJURY/ILLNESS? YES IS THE PATIENT'S HISTORY OF THE INJURY/ILLNESS CONSISTENT WITH YOUR OBJECTIVE FINDING? YES WHAT IS THE PERCENTAGE OF TEMPORARY IMPAIRMENT? MARKED = 75% IS THE PATIENT WORKING? NO DOCTOR ON SITE: KRISTEN STORY MD PROCEDURE CODES FA211 ESTABILISHED PATIENT [facility] FACILITY CHARGE G8427 DOC MEDS VERIFIED W/PT OR RE G8730 PAIN ASSESS POS TOOL F/U PLAN DOC DISPOSITION & COMMUNICATION FOLLOW UP 4 WEEKS ELECTRONICALLY SIGNED BY KRISTEN HERNDON MD ON 09/30/2016 AT 10:16 PM EDT DISCLAIMER : THIS IS A VISIT SUMMARY EXTRACTED FROM THE [employer] CHART. IT IS NOT A COPY OF THE [employer] PROGRESS NOTE. GENAROD
== END ==
LOC: M PAIN 15:20
PROVIDERS: ATTEND Anesthesiology
DX: M96.1 Postlaminectomy syndrome, not elsewhere classified (principal); M51.16 Intervertebral disc disorders with radiculopathy, lumbar region; G89.29 Other chronic pain; M54.2 Cervicalgia; M54.5 Low back pain; Z79.899 Other long term (current) drug therapy; J30.9 Allergic rhinitis, unspecified

== ENCOUNTER → 2016-11-02 | Outpatient (CLI) | payer OTHER ==
--- NOTE | 2016-11-19 23:51 | ECWPNPC ---
PATIENT NAME: YEE COSTA : 1975 GENDER: FEMALE VISIT DATE: 11/02/2016 DISCHARGE DATE: 11/02/16 1453 VISIT LOCKED DATE TIME: PHYSICIAN: KRISTEN HERNDON RESOURCE: KRISTEN HERNDON REASON FOR APPOINTMENT 1. BACK W/C HISTORY OF PRESENT ILLNESS HISTORY OF PRESENT ILLNESS: PAIN THE PATIENT DESCRIBES THE PAIN... 41 YEAR OLD FEMALE PATIENT WITH HISTORY OF CHRONIC LOW BACK AND NECK PAIN. PATIENT DESCRIBES THE PAIN ACHING, SHARP, STABBING, SORE, AND HAVING IT ALL THE TIME WITH A PAIN SCORE OF 4-5/10. 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 MRS. COSTA WAS HELPING ANOTHER NURSE IN THE BATHROOM WITH A PATIENT AND COWORKER MOVED THE PATIENT BEFORE MRS. COSTA WAS READY AND HAD TO TWIST AND THEN HEARD POPPING AND SNAPS IN HER BACK AND NECK. PATIENT USED IBUPROFEN TO HELP WITH PAIN UNTIL SHE WENT TO THE DOCTOR AND HAD XRAYS AND WAS TAKEN OUT OF WORK ROUGHLY 6 WEEKS LATER. PATIENT STATES THAT ANY TYPE OF ACTIVITY INCLUDING STANDING, SITTING, AND WALKING INCREASES THE PAIN IN HER LOWER BACK. AT THIS TIME THE PATIENT IS USING BELBUCA, TIZANIDINE, ROBAXIN AND LYRICA FOR PAIN MANAGEMENT AND STATES THE MEDICATIONS KEEP HER MOBILE AND FUNCTIONAL. PATIENT REPORTS HAVING A PSYCHOLOGICAL EVALUATION DONE FOR A DCS. PATIENT DENIES UNEXPLAINABLE WEIGHT LOSS, FEVER, CHILLS, NEW CHANGES ON HER URINARY OR BOWEL CONTROL. FALL RISK SCREENING: SCREENING :NO FALLS IN THE PAST YEAR CURRENT MEDICATIONS TAKING LYRICA 150 MG CAPSULE 1 CAPSULE ORALLY THREE TIMES DAILY MDD=3 TAKING TIZANIDINE HCL 4 MG TABLET 1 TABLET NEEDED ORALLY BEFORE BEDTIME MAY REPEAT IN 5 HRS MDD2 TAKING ROBAXIN 500 MG TABLET 1 CAP ORALLY EVERY 4 HRS PRN FOR SPASMS AND PAIN MDD2 TAKING PREMPRO 0.625-5 MG TABLET 1 TABLET ORALLY ONCE A DAY TAKING METOPROLOL SUCCINATE ER 50 MG TABLET EXTENDED RELEASE 24 HOUR 1 TABLET ORALLY ONCE A DAY TAKING VENLAFAXINE HCL ER 150 MG CAPSULE EXTENDED RELEASE 24 HOUR 1 CAPSULE WITH FOOD ORALLY ONCE A DAY TAKING VENLAFAXINE HCL ER 37.5 MG TABLET EXTENDED RELEASE 24 HOUR 1 TABLET WITH FOOD ORALLY ONCE A DAY TAKING OMEPRAZOLE 40 MG CAPSULE DELAYED RELEASE 1 CAPSULE ORALLY ONCE A DAY TAKING ZYRTEC ALLERGY 10 MG TABLET 1 TABLET ORALLY ONCE A DAY TAKING SINGULAIR 10 MG TABLET 1 TABLET IN THE EVENING ORALLY ONCE A DAY TAKING VITAMIN D HIGH POTENCY 1000 UNIT CAPSULE 5 CAPSULE ORALLY ONCE A DAY TAKING HYDROXYZINE HCL 50 MG TABLET 1 TABLET NEEDED ORALLY BEFORE BEDTIME TAKING ALBUTEROL SULFATE (5 MG/ML) 0.5% NEBULIZATION SOLUTION 0.5 ML INHALATION THREE TIMES A DAY PRN TAKING XANAX 0.5 MG TABLET 1 TABLET ORALLY TWICE A DAY PRN TAKING VOLTAREN 1 % GEL DIRECTED TRANSDERMAL APPLY 4 GRAMS TO PAINFUL AREA OF LOW BACK EVERY 6 HOURS NEEDED TAKING TOPAMAX 50 MG TABLET 1 TABLET ORALLY EVERY BEDTIME TAKING PHENTERMINE HCL 15 MG CAPSULE 1 CAPSULE ORALLY ONCE A DAY TAKING FLONASE ALLERGY RELIEF 50 MCG/ACT SUSPENSION 1 SPRAY IN EACH NOSTRIL NASALLY TWICE A DAY TAKING BELBUCA 300 MCG FILM 1 FILM TO THE GUM BUCALLY EVERY 12 HRS TAKING IBUPROFEN 400 MG TABLET 1 TABLET WITH FOOD OR MILK NEEDED ORALLY THREE TIMES A DAY NOT-TAKING LYRICA 150 MG CAPSULE 1 CAPSULE ORALLY THREE TIMES DAILY NOT-TAKING TIZANIDINE HCL 2 MG TABLET 1 TABLET NEEDED ORALLY THREE TIMES A DAY NOT-TAKING AMITRIPTYLINE HCL 25 MG TABLET 1 TABLET ORALLY BEFORE BEDTIME NOT-TAKING HYDROCODONE-ACETAMINOPHEN 10-325 MG TABLET 1 TABLET NEEDED ORALLY EVERY 6 HRS MEDICATION LIST REVIEWED AND RECONCILED WITH THE PATIENT PAST MEDICAL HISTORY HYPERTENSION ASTHMA GERD ARTHRITIS ALLERGIES ENVIRONMENTAL: NASAL CONGESTION: ALLERGY REVIEW OF SYSTEMS REVIEWED BY: PROVIDER: KRISTEN HERNDON MD . CONSTITUTIONAL: ANY CHANGE IN YOUR MEDICAL CONDITION? NO . CHILLS NO . FEVER NO . INFECTION: DO YOU HAVE NEW INFECTIONS? NO . DO YOU HAVE HISTORY OF MRSA? NO . MUSCULOSKELETAL: ANY NEW PATTERNS OF PAIN OR NUMBNESS? YES PT STATES PAIN IS MORE INTENSE THAN USUAL BECAUSE SHE IS MORE ACTIVE WITH HER CHILDREN . GASTROENTEROLOGY: ANY NEW CHANGE IN BOWEL CONTROL? NO . GENITOURINARY: ANY NEW CHANGE IN BLADDER CONTROL? NO . IS THERE A CHANCE YOU COULD BE ? NO . HEMATOLOGY/LYMPH: DO YOU TAKE ANY BLOOD THINNERS? (FOR EXAMPLE- COUMADIN, PLAVIX, AGGRENOX, PLATEL, PRADAXA, OR XARELTO) NO . WHEN WAS YOUR LAST DOSE? DATE: TIME: . NEUROLOGY: HAVE YOU FALLEN IN THE PAST 6 MONTHS? YES PT REPORTS SHE FELL COMING INSIDE HER HOUSE, HER RIGHT LEG HAS A HARD TIME WITH THE STEPS, AND SHE TRIPS ON THE WAY UP THE STAIRS. NO INJURIES, NO ED VISIT . ANY NEW EXTREMITY NUMBNESS OR WEAKNESS? NO . CARDIOLOGY: DO YOU HAVE A PACEMAKER OR DEFIBRILLATOR? NO . RESPIRATORY: HAVE YOU BEEN SICK IN THE PAST WEEK? NO . FEVER NO . FLU LIKE SYMPTOMS? NO . COUGH NO . INTEGUMENTARY: DO YOU HAVE ANY RASHES OR OPEN SORES? NO . ALLERGIC/IMMUNO: ARE YOU ALLERGIC TO SHELLFISH OR IV DYE? NO . ANY NEW ALLERGIES? NO . PSYCHIATRIC: DO YOU HAVE THOUGHTS OF HURTING YOURSELF OR SOMEONE ELSE? NO . ARE YOU ABUSED, NEGLECTED, OR IN AN UNSAFE ENVIRONMENT? NO . ENDOCRINOLOGY: ARE YOU DIABETIC? NO . OTHER: DO YOU NEED ANY PRESCRIPTIONS? NO . IF YES, PLEASE LIST: ____ . ANY NEW PROBLEMS WITH YOUR MEDICATIONS? NO . WHEN DID YOU LAST EAT? ____ . WHEN DID YOU LAST DRINK? ____ . WHAT DID YOU LAST DRINK? ____ . NAME OF PERSON DRIVING YOU HOME? ____ . DO YOU HAVE ANY OTHER QUESTIONS OR CONCERNS YES PT STATES HER LEGS AND HANDS ARE &QUOT;JUMPY&QUOT; AND SOMETIMES SHE DROPS OBJECTS THAT SHE IS HOLDING, IE HER PHONE, OR BOOKS. . VITAL SIGNS WT 305 LBS, HT 65 IN, BMI 50.75 INDEX, BP 140/75 MM HG, HR 65 /MIN, RR 16 /MIN, TEMP 97.4 F, OXYGEN SAT % 95%, NA INITIALS AW 1410. EXAMINATION : PATIENT IS ALERT O X 3 AND COOPERATIVE. ANTALGIC GAIT. DIFFICULTIES STANDING. LIMPING FROM RIGHT SIDE. ABLE TO FLEX 90 DEGREES AND EXTEND 10 DEGREES. TENDERNESS IN THE LOWER BACK AND PARASPINAL MUSCLE GROUP. RIGHT LEG IS WEAKER THEN THE LEFT AT EXTENSION AND FLEXION. MRI DONE ON 04/02/2015 OF THE LUMBAR SPINE SHOWS POST LAMINECTOMY CHANGES AND A DISC BULGE AT L3-L4. 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 COSTA'S PAIN MANAGEMENT CASE. AT THIS TIME THE PATIENT WILL CONTINUE WITH THE SAME MEDICATION REGIME BEFORE. PATIENT WILL CONTINUE TO USE THE TIZANIDINE FOR THE MUSCLE SPASMS, ROBAXIN FOR THE MUSCLE STIFFNESS, AND BELBUCA FOR THE SOMATIC PAIN. PATIENT DENIES ABUSE OF ANY MEDICATION, DENIES USE OF ILLEGAL SUBSTANCES, AND STATES SHE IS ONLY USING THE MEDICATION FOR PAIN MANAGEMENT. PATIENT WILL SIGN A NARCOTIC AGREEMENT AND PERFORM A URINE TOXICOLOGY SAMPLE TODAY. WE DISCUSSED DCS AGAIN AT THIS VISIT. PATIENT REPORTS HAVING A PSYCHOLOGICAL EVALUATION DONE ALREADY. I WOULD LIKE THE PATIENT TO HAVE AN UPDATED THORACIC MRI TO SEE IF THERE IS ROOM FOR THE LEADS TO PASS THROUGH. PATIENT WILL RETURN TO THE CLINIC IN 1 MONTH. INSTRUCTIONS WERE GIVEN, QUESTIONS WERE ANSWERED, PATIENT REPORTS UNDERSTANDING AND AGREES WITH THE PLAN. I, TOSHIA DAY, DOCUMENTED THE ABOVE INFORMATION ACTING A SCRIBE FOR DR. HERNDON. I HAVE REVIEWED THE ABOVE DOCUMENT, WRITTEN BY TOSHIA NGUYEN AND I VERIFY THAT IT IS ACCURATE. LUMBAR POST-LAMINECTOMY SYNDROME REFILL LYRICA CAPSULE, 150 MG, 1 CAPSULE, ORALLY, THREE TIMES DAILY MDD=3, 30 DAY(S), 90, REFILLS 1 OTHERS REFILL BELBUCA FILM, 300 MCG, 1 FILM TO THE GUM, BUCALLY, EVERY 12 HRS, 30 DAY(S), 60, REFILLS 0 PROCEDURES PN WORKMANS' COMP OPINION IN YOUR OPINION, WAS THE INCIDENT THAT THE PATIENT DESCRIBED THE COMPETENT MEDICAL CAUSE OF THIS INJURY/ILLNESS? YES ARE THE PATIENT'S COMPLAINTS CONSISTENT WITH HIS/HER HISTORY OF THE INJURY/ILLNESS? YES IS THE PATIENT'S HISTORY OF THE INJURY/ILLNESS CONSISTENT WITH YOUR OBJECTIVE FINDING? YES WHAT IS THE PERCENTAGE OF TEMPORARY IMPAIRMENT? MARKED = 75% IS THE PATIENT WORKING? NO DOCTOR ON SITE: KRISTEN STORY MD PROCEDURE CODES FA211 ESTABILISHED PATIENT [facility] FACILITY CHARGE G8427 DOC MEDS VERIFIED W/PT OR RE G8730 PAIN ASSESS POS TOOL F/U PLAN DOC DISPOSITION & COMMUNICATION FOLLOW UP 3 WEEKS ELECTRONICALLY SIGNED BY KRISTEN HERNDON MD ON 11/19/2016 AT 09:04 PM EDT DISCLAIMER : THIS IS A VISIT SUMMARY EXTRACTED FROM THE [employer] CHART. IT IS NOT A COPY OF THE [employer] PROGRESS NOTE. DAVID
== END ==
LOC: M PAIN 13:30
PROVIDERS: ATTEND Anesthesiology
DX: M51.16 Intervertebral disc disorders with radiculopathy, lumbar region (principal); M96.1 Postlaminectomy syndrome, not elsewhere classified; M54.5 Low back pain; G89.29 Other chronic pain; I10 Essential (primary) hypertension; K21.9 Gastro-esophageal reflux disease without esophagitis; M19.90 Unspecified osteoarthritis, unspecified site; J45.909 Unspecified asthma, uncomplicated; Z79.891 Long term (current) use of opiate analgesic; Z79.899 Other long term (current) drug therapy

== ENCOUNTER → 2017-02-14 | Outpatient (CLI) | payer OTHER ==
--- NOTE | 2017-03-14 02:45 | ECWPNPC ---
PATIENT NAME: YEE COSTA : 1975 GENDER: FEMALE VISIT DATE: 02/14/2017 DISCHARGE DATE: 02/14/17 1622 VISIT LOCKED DATE TIME: PHYSICIAN: MANA GROSSMAN RESOURCE: MANA GROSSMAN REASON FOR APPOINTMENT 1. W/C, F/UP HISTORY OF PRESENT ILLNESS HISTORY OF PRESENT ILLNESS: PAIN THE PATIENT DESCRIBES THE PAIN... FALL RISK SCREENING: SCREENING :NO FALLS IN THE PAST YEAR TODAY'S VISIT: NOTES: FOLLOWU FOR LOW BACK PAIN. IS AWAITING MOVING FORWARD WITHRATES PAIN LEVEL TODAY 5/10. DESCRIBES PAIN CONSTANT, ACHING, BURNING SHOOTING FROM THE CENTER NECK TO THE HEAD WITH MOVEMENT. REPORTS MEDS ARE HELPFUL AND KEEPS THE PAIN MANAGEBLE. PROLONGED WALKING AGGRAVATES LOW BACK PAIN. SLEEP REMAINS DISRUPTED. IS HAVING TWITCHING IN HER HANDS. . CURRENT MEDICATIONS TAKING PREMPRO 0.625-5 MG TABLET 1 TABLET ORALLY ONCE A DAY TAKING METOPROLOL SUCCINATE ER 50 MG TABLET EXTENDED RELEASE 24 HOUR 1 TABLET ORALLY ONCE A DAY TAKING VENLAFAXINE HCL ER 150 MG CAPSULE EXTENDED RELEASE 24 HOUR 1 CAPSULE WITH FOOD ORALLY ONCE A DAY TAKING VENLAFAXINE HCL ER 37.5 MG TABLET EXTENDED RELEASE 24 HOUR 1 TABLET WITH FOOD ORALLY ONCE A DAY TAKING OMEPRAZOLE 40 MG CAPSULE DELAYED RELEASE 1 CAPSULE ORALLY ONCE A DAY TAKING ZYRTEC ALLERGY 10 MG TABLET 1 TABLET ORALLY ONCE A DAY TAKING SINGULAIR 10 MG TABLET 1 TABLET IN THE EVENING ORALLY ONCE A DAY TAKING HYDROXYZINE HCL 50 MG TABLET 1 TABLET NEEDED ORALLY BEFORE BEDTIME TAKING ALBUTEROL SULFATE (5 MG/ML) 0.5% NEBULIZATION SOLUTION 0.5 ML INHALATION THREE TIMES A DAY PRN TAKING XANAX 0.5 MG TABLET 1 TABLET ORALLY TWICE A DAY PRN TAKING VOLTAREN 1 % GEL DIRECTED TRANSDERMAL APPLY 4 GRAMS TO PAINFUL AREA OF LOW BACK EVERY 6 HOURS NEEDED TAKING PHENTERMINE HCL 15 MG CAPSULE 1 CAPSULE ORALLY ONCE A DAY TAKING FLONASE ALLERGY RELIEF 50 MCG/ACT SUSPENSION 1 SPRAY IN EACH NOSTRIL NASALLY TWICE A DAY TAKING IBUPROFEN 400 MG TABLET 1 TABLET WITH FOOD OR MILK NEEDED ORALLY THREE TIMES A DAY TAKING BELBUCA 300 MCG FILM 1 FILM TO THE GUM BUCALLY EVERY 12 HRS TAKING LYRICA 150 MG CAPSULE 1 CAPSULE ORALLY THREE TIMES DAILY MDD=3 TAKING TIZANIDINE HCL 4 MG TABLET 1 TABLET NEEDED ORALLY BEFORE BEDTIME MAY REPEAT IN 5 HRS MDD2 TAKING ROBAXIN 500 MG TABLET 1 CAP ORALLY EVERY 4 HRS PRN FOR SPASMS AND PAIN MDD2 TAKING HYDROCHLOROTHIAZIDE 12.5 MG CAPSULE 1 CAPSULE IN THE MORNING ORALLY ONCE A DAY NOT-TAKING VITAMIN D HIGH POTENCY 1000 UNIT CAPSULE 5 CAPSULE ORALLY ONCE A DAY NOT-TAKING TOPAMAX 50 MG TABLET 1 TABLET ORALLY EVERY BEDTIME NOT-TAKING LYRICA 150 MG CAPSULE 1 CAPSULE ORALLY THREE TIMES DAILY NOT-TAKING TIZANIDINE HCL 2 MG TABLET 1 TABLET NEEDED ORALLY THREE TIMES A DAY NOT-TAKING AMITRIPTYLINE HCL 25 MG TABLET 1 TABLET ORALLY BEFORE BEDTIME NOT-TAKING HYDROCODONE-ACETAMINOPHEN 10-325 MG TABLET 1 TABLET NEEDED ORALLY EVERY 6 HRS MEDICATION LIST REVIEWED AND RECONCILED WITH THE PATIENT PAST MEDICAL HISTORY HYPERTENSION ASTHMA GERD ARTHRITIS ALLERGIES ENVIRONMENTAL: NASAL CONGESTION: ALLERGY SOCIAL HISTORY GENERAL: TOBACCO USE ARE YOU A:NONSMOKER ALCOHOL SCREENING DID YOU HAVE A DRINK CONTAINING ALCOHOL IN THE PAST YEAR?YES HOW OFTEN DID YOU HAVE A DRINK CONTAINING ALCOHOL IN THE PAST YEAR?MONTHLY OR LESS (1 POINT) HOW MANY DRINKS DID YOU HAVE ON A TYPICAL DAY WHEN YOU WERE DRINKING IN THE PAST YEAR?5 OR 6 (2 POINTS) HOW OFTEN DID YOU HAVE SIX OR MORE DRINKS ON ONE OCCASION IN THE PAST YEAR?LESS THAN MONTHLY (1 POINT) POINTS4 INTERPRETATIONPOSITIVE RECREATIONAL DRUG USE DRUG USE?NO CAFFEINE: YES CAFFEINE USE?YES HOW OFTEN AND HOW MUCH? 2-3 C COFFEE PER DAY, 1 C TEA PER DAY CONFUCIANIST [id number] NONE LANGUAGE LANGUAGES SPOKEN:PANAMANIAN LEARNING BARRIERS / SPECIAL NEEDS CHANGE FROM LAST VISIT?NO BARRIERS TO LEARNING?NO HEARING IMPAIRED?NO VISION IMPAIRED?YES :CORRECTIVE LENSES COGNITIVELY IMPAIRED?NO READINESS TO LEARN?NO LEARNING PREFERENCES?NO LEARNING CAPABILITIES PRESENT?NO EMOTIONAL BARRIERS?NO SPECIAL DEVICES?NO SUPERVISOR SCREEN PRINTING NEEDED?NO PAIN CLINIC PFS, CLERGY, PUBLIC HEALTH REFERRALS PFS REFERRAL NEEDED?NO CLERGY REFERRAL NEEDED?NO PUBLIC HEALTH REFERRAL NEEDED?NO WAS THE PROVIDER NOTIFIED OF ANY PERTINENT INFO?NO HAS THE PATIENT BEEN EDUCATED REGARDING HIS/HER PLAN OF CARE?YES HAS THE PATIENT BEEN EDUCATED REGARDING PAIN, THE RISK FOR PAIN, THE IMPORTANCE OF EFFECTIVE PAIN MANAGEMENT, AND THE PAIN ASSESSMENT PROCESS?YES PATIENT: ____. ADVANCE DIRECTIVES HEALTH CARE PROXY?YES NAME OF HCP JUDY COSTA CONTACT # FOR HCP [phone] DO YOU HAVE A COPY WITH YOU?NO DO YOU HAVE A DNR?NO WOULD YOU LIKE MORE INFORMATION?NO LIVING WILL?NO WOULD YOU LIKE MORE INFORMATION?NO POWER OF CUTTING TORCH OPERATOR?NO REVIEW OF SYSTEMS REVIEWED BY: PROVIDER: . CONSTITUTIONAL: ANY CHANGE IN YOUR MEDICAL CONDITION? NO . CHILLS NO . FEVER NO . INFECTION: DO YOU HAVE NEW INFECTIONS? NO . DO YOU HAVE HISTORY OF MRSA? NO . MUSCULOSKELETAL: ANY NEW PATTERNS OF PAIN OR NUMBNESS? NO . GASTROENTEROLOGY: ANY NEW CHANGE IN BOWEL CONTROL? NO . GENITOURINARY: ANY NEW CHANGE IN BLADDER CONTROL? NO . IS THERE A CHANCE YOU COULD BE ? NO . HEMATOLOGY/LYMPH: DO YOU TAKE ANY BLOOD THINNERS? (FOR EXAMPLE- COUMADIN, PLAVIX, AGGRENOX, PLATEL, PRADAXA, OR XARELTO) NO . WHEN WAS YOUR LAST DOSE? DATE: TIME: . NEUROLOGY: HAVE YOU FALLEN IN THE PAST 6 MONTHS? NO . ANY NEW EXTREMITY NUMBNESS OR WEAKNESS? NO . CARDIOLOGY: DO YOU HAVE A PACEMAKER OR DEFIBRILLATOR? NO . RESPIRATORY: HAVE YOU BEEN SICK IN THE PAST WEEK? YES PT REPORTS SHE IS CURRENTLY FEELING "YUCKY", WITH FATIGUE, HEADACHE, BODY ACHES, SORE THROAT, SINUS CONGESTION . FEVER NO . FLU LIKE SYMPTOMS? NO . COUGH NO . INTEGUMENTARY: DO YOU HAVE ANY RASHES OR OPEN SORES? NO . ALLERGIC/IMMUNO: ARE YOU ALLERGIC TO SHELLFISH OR IV DYE? NO . ANY NEW ALLERGIES? NO . PSYCHIATRIC: DO YOU HAVE THOUGHTS OF HURTING YOURSELF OR SOMEONE ELSE? NO . ARE YOU ABUSED, NEGLECTED, OR IN AN UNSAFE ENVIRONMENT? NO . ENDOCRINOLOGY: ARE YOU DIABETIC? NO . OTHER: DO YOU NEED ANY PRESCRIPTIONS? YES . IF YES, PLEASE LIST: ____LYRICA, BELBUCA, TIZANADINE, ROBAXIN . ANY NEW PROBLEMS WITH YOUR MEDICATIONS? NO . WHEN DID YOU LAST EAT? ____ . WHEN DID YOU LAST DRINK? ____ . WHAT DID YOU LAST DRINK? ____ . NAME OF PERSON DRIVING YOU HOME? ____ . DO YOU HAVE ANY OTHER QUESTIONS OR CONCERNS YES PT REPORTS HER LIMBS ARE "JUMPING" - HER THUMBS, HANDS, LEGS, FEET. HER PRIMARY DOCTOR IS CHECKING HER FOR LOW POTASSIUM . VITAL SIGNS WT 292 LBS, HT 65 IN, BMI 48.59 INDEX, BP 118/70 MM HG, HR 88 /MIN, RR 18 /MIN, TEMP 96.9 F, OXYGEN SAT % 99%, SAFE IN ENV? (Y/N) YES, REVIEWED BY: GEORGES. EXAMINATION GENERAL EXAMINATION: PSYCHALERT , ORIENTED X 3 , APPROPRIATE MOOD AND AFFECT . HEENT:NORMOCEPHALIC. NO LYMPHADENOPATHY, NO THYROMEGLY. HEART:HEART RATE REGULAR, NORMAL S1S2, NO MURMURS, CLICK OR RUBS. MUSCULOSKELETAL:MUSCLE STRENGTH TESTING 5/5 BILATERAL UPPER NAD LOWER EXTREMITIES. TENDER WITH PALPATION OVER LUMBAR SPINOUS PROCESSES AND ACROSS LUMBO SACRAL AXIS. ABLE TO FLEX SPINE AND THEN REPORTS PAIN.. EXTREMITIES:NO EDEMA. NEUROLOGIC EXAM:NO SENSORY DEFICEIT. DTR'S 2+ LEFT, TRACE RIGHT LOWER EXTREMITES. DIAGNOSTIC TESTS REVIEWEDMRI OF LUMBAR SPINE COMPLETED 04/02/15 REVIEWED. ASSESSMENTS LUMBAR POST-LAMINECTOMY SYNDROME - M96.1 (PRIMARY) TREATMENT LUMBAR POST-LAMINECTOMY SYNDROME NOTES: SURGEON HAS WRITTEN A SCRIPT FOR DEEP TISSUE MASSAGE - IS LOOKING FOR A THERAPIST TO ACCEPT HER INSURANCECONTINUE CURRENT MEDS. PROCEDURE CODES FA211 ESTABILISHED [facility]IENT [facility] CHAR[facility] DISPOSITION & COMMUNICATION FOLLOW UP NEEDS DATE LISA WITH DR HERNDON FOR DCS PRE-OP (REASON: WC BACK) ELECTRONICALLY SIGNED BY NAM MARCOS ON 03/13/2017 AT 08:54 AM EST DISCLAIMER : THIS IS A VISIT SUMMARY EXTRACTED FROM THE [employer] CHART. IT IS NOT A COPY OF THE [employer] PROGRESS NOTE. DAVID
== END ==
LOC: M PAIN 14:45
PROVIDERS: ATTEND Anesthesiology
DX: M96.1 Postlaminectomy syndrome, not elsewhere classified (principal); M54.5 Low back pain; I10 Essential (primary) hypertension; Z79.899 Other long term (current) drug therapy; J30.9 Allergic rhinitis, unspecified

== ENCOUNTER → 2017-02-27 | Outpatient (CLI) | payer OTHER ==
--- NOTE | 2017-03-14 01:17 | ECWPNPC ---
PATIENT NAME: YEE COSTA : 1975 GENDER: FEMALE VISIT DATE: 02/27/2017 DISCHARGE DATE: 02/27/17 1356 VISIT LOCKED DATE TIME: PHYSICIAN: KRISTEN HERNDON RESOURCE: KRISTEN HERNDON HISTORY OF PRESENT ILLNESS HISTORY OF PRESENT ILLNESS: PAIN THE PATIENT DESCRIBES THE PAIN... 41 YEAR OLD FEMALE PATIENT WITH HISTORY OF CHRONIC LOW BACK AND NECK PAIN. PATIENT DESCRIBES THE PAIN ACHING, SHARP, STABBING, SORE, AND HAVING IT ALL THE TIME WITH A PAIN SCORE OF 5-8/10. 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 MRS. COSTA WAS HELPING ANOTHER NURSE IN THE BATHROOM WITH A PATIENT AND COWORKER MOVED THE PATIENT BEFORE MRS. COSTA WAS READY AND HAD TO TWIST AND THEN HEARD POPPING AND SNAPS IN HER BACK AND NECK. PATIENT USED IBUPROFEN TO HELP WITH PAIN UNTIL SHE WENT TO THE DOCTOR AND HAD XRAYS AND WAS TAKEN OUT OF WORK ROUGHLY 6 WEEKS LATER. PATIENT REPORTS HAVING INJECTIONS BEFORE BUT STATES THAT THEY DO NOT WORK AND ACTUALLY CAUSED HER LEG PAIN. PHYSICAL THERAPY DID NOT AID THE PATIENT IN PAIN RELIEF OR MOBILITY AND FUNCTIONALITY. CURRENTLY PATIENT IS USING LYRICA, BELBUCA, AND TIZANIDINE AND STATES THAT THE MEDICATION KEEPS HER MOBILE AND FUNCTIONAL. AT THIS TIME THE PATIENT STATES THAT ANY TYPE OF ACTIVITY INCREASES THE PAIN IN HER NECK AND LOWER BACK. PATIENT DENIES UNEXPLAINABLE WEIGHT LOSS, FEVER, CHILLS, NEW CHANGES ON HER URINARY OR BOWEL CONTROL. FALL RISK SCREENING: SCREENING :NO FALLS IN THE PAST YEAR CURRENT MEDICATIONS TAKING PREMPRO 0.625-5 MG TABLET 1 TABLET ORALLY ONCE A DAY TAKING METOPROLOL SUCCINATE ER 50 MG TABLET EXTENDED RELEASE 24 HOUR 1 TABLET ORALLY ONCE A DAY TAKING VENLAFAXINE HCL ER 150 MG CAPSULE EXTENDED RELEASE 24 HOUR 1 CAPSULE WITH FOOD ORALLY ONCE A DAY TAKING VENLAFAXINE HCL ER 37.5 MG TABLET EXTENDED RELEASE 24 HOUR 1 TABLET WITH FOOD ORALLY ONCE A DAY TAKING OMEPRAZOLE 40 MG CAPSULE DELAYED RELEASE 1 CAPSULE ORALLY ONCE A DAY TAKING ZYRTEC ALLERGY 10 MG TABLET 1 TABLET ORALLY ONCE A DAY TAKING SINGULAIR 10 MG TABLET 1 TABLET IN THE EVENING ORALLY ONCE A DAY TAKING HYDROXYZINE HCL 50 MG TABLET 1 TABLET NEEDED ORALLY BEFORE BEDTIME TAKING ALBUTEROL SULFATE (5 MG/ML) 0.5% NEBULIZATION SOLUTION 0.5 ML INHALATION THREE TIMES A DAY PRN TAKING XANAX 0.5 MG TABLET 1 TABLET ORALLY TWICE A DAY PRN TAKING VOLTAREN 1 % GEL DIRECTED TRANSDERMAL APPLY 4 GRAMS TO PAINFUL AREA OF LOW BACK EVERY 6 HOURS NEEDED TAKING PHENTERMINE HCL 15 MG CAPSULE 1 CAPSULE ORALLY ONCE A DAY TAKING FLONASE ALLERGY RELIEF 50 MCG/ACT SUSPENSION 1 SPRAY IN EACH NOSTRIL NASALLY TWICE A DAY TAKING IBUPROFEN 400 MG TABLET 1 TABLET WITH FOOD OR MILK NEEDED ORALLY THREE TIMES A DAY TAKING BELBUCA 300 MCG FILM 1 FILM TO THE GUM BUCALLY EVERY 12 HRS TAKING LYRICA 150 MG CAPSULE 1 CAPSULE ORALLY THREE TIMES DAILY MDD=3 TAKING TIZANIDINE HCL 4 MG TABLET 1 TABLET NEEDED ORALLY BEFORE BEDTIME MAY REPEAT IN 5 HRS MDD2 TAKING ROBAXIN 500 MG TABLET 1 CAP ORALLY EVERY 4 HRS PRN FOR SPASMS AND PAIN MDD2 TAKING HYDROCHLOROTHIAZIDE 12.5 MG CAPSULE 1 CAPSULE IN THE MORNING ORALLY ONCE A DAY NOT-TAKING VITAMIN D HIGH POTENCY 1000 UNIT CAPSULE 5 CAPSULE ORALLY ONCE A DAY NOT-TAKING TOPAMAX 50 MG TABLET 1 TABLET ORALLY EVERY BEDTIME NOT-TAKING LYRICA 150 MG CAPSULE 1 CAPSULE ORALLY THREE TIMES DAILY NOT-TAKING TIZANIDINE HCL 2 MG TABLET 1 TABLET NEEDED ORALLY THREE TIMES A DAY NOT-TAKING AMITRIPTYLINE HCL 25 MG TABLET 1 TABLET ORALLY BEFORE BEDTIME NOT-TAKING HYDROCODONE-ACETAMINOPHEN 10-325 MG TABLET 1 TABLET NEEDED ORALLY EVERY 6 HRS MEDICATION LIST REVIEWED AND RECONCILED WITH THE PATIENT PAST MEDICAL HISTORY HYPERTENSION ASTHMA GERD ARTHRITIS ALLERGIES ENVIRONMENTAL: NASAL CONGESTION: ALLERGY SURGICAL HISTORY RIGHT HAND 4TH DIGIT TENDON REPAIR ([facility]) 08/1999 GASTRIC BYPASS ([facility]) 03/2000 CHOLECYSTECTOMY, HERNIA REPAIR ([facility]) 03/2000 HYSTEROSCOPY AND D & C X 4 ([facility]) [id number] HYSTEROSCOPY ([facility]) 2006 HYSTERECTOMY WITH BILATERAL S & O ([facility]) 08/2012 LUMBAR FUSION L4, L5, S1 WITH LAMINECTOMY, DECOMPRESSION ([facility]) 10/2014 COLPOSCOPY WITH BIOPSIES ([facility], [facility]) [phone] SOCIAL HISTORY GENERAL: TOBACCO USE ARE YOU A:NONSMOKER ALCOHOL SCREENING DID YOU HAVE A DRINK CONTAINING ALCOHOL IN THE PAST YEAR?YES HOW OFTEN DID YOU HAVE A DRINK CONTAINING ALCOHOL IN THE PAST YEAR?MONTHLY OR LESS (1 POINT) HOW MANY DRINKS DID YOU HAVE ON A TYPICAL DAY WHEN YOU WERE DRINKING IN THE PAST YEAR?5 OR 6 (2 POINTS) HOW OFTEN DID YOU HAVE SIX OR MORE DRINKS ON ONE OCCASION IN THE PAST YEAR?LESS THAN MONTHLY (1 POINT) POINTS4 INTERPRETATIONPOSITIVE RECREATIONAL DRUG USE DRUG USE?NO CAFFEINE: YES CAFFEINE USE?YES HOW OFTEN AND HOW MUCH? 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 ADVANCE DIRECTIVES HEALTH CARE PROXY?YES NAME OF HCP JUDY COSTA CONTACT # FOR HCP [phone] DO YOU HAVE A COPY WITH YOU?NO DO YOU HAVE A DNR?NO WOULD YOU LIKE MORE INFORMATION?NO LIVING WILL?NO WOULD YOU LIKE MORE INFORMATION?NO POWER OF TELECOM BILLING ANALYST?NO HOSPITALIZATION/MAJOR DIAGNOSTIC PROCEDURE SURGERIES REVIEW OF SYSTEMS REVIEWED BY: PROVIDER: KRISTEN HERNDON MD . CONSTITUTIONAL: ANY CHANGE IN YOUR MEDICAL CONDITION? NO . CHILLS NO . FEVER NO . INFECTION: DO YOU HAVE NEW INFECTIONS? NO . DO YOU HAVE HISTORY OF MRSA? NO . MUSCULOSKELETAL: ANY NEW PATTERNS OF PAIN OR NUMBNESS? NO . GASTROENTEROLOGY: ANY NEW CHANGE IN BOWEL CONTROL? NO . GENITOURINARY: ANY NEW CHANGE IN BLADDER CONTROL? NO . IS THERE A CHANCE YOU COULD BE ? NO . HEMATOLOGY/LYMPH: DO YOU TAKE ANY BLOOD THINNERS? (FOR EXAMPLE- COUMADIN, PLAVIX, AGGRENOX, PLATEL, PRADAXA, OR XARELTO) NO . WHEN WAS YOUR LAST DOSE? DATE: TIME: . NEUROLOGY: HAVE YOU FALLEN IN THE PAST 6 MONTHS? YES, PT STATES SHE FELL 1-1/2 WEEKS AGO FROM LEG WEAKNESS, PT STATES SHE FALLS FREQUENTLY, BUT NO INJURIES . ANY NEW EXTREMITY NUMBNESS OR WEAKNESS? NO . CARDIOLOGY: DO YOU HAVE A PACEMAKER OR DEFIBRILLATOR? NO . RESPIRATORY: HAVE YOU BEEN SICK IN THE PAST WEEK? NO . FEVER NO . FLU LIKE SYMPTOMS? NO . COUGH NO . INTEGUMENTARY: DO YOU HAVE ANY RASHES OR OPEN SORES? NO . ALLERGIC/IMMUNO: ARE YOU ALLERGIC TO SHELLFISH OR IV DYE? NO . ANY NEW ALLERGIES? NO . PSYCHIATRIC: DO YOU HAVE THOUGHTS OF HURTING YOURSELF OR SOMEONE ELSE? NO . ARE YOU ABUSED, NEGLECTED, OR IN AN UNSAFE ENVIRONMENT? NO . ENDOCRINOLOGY: ARE YOU DIABETIC? NO . OTHER: DO YOU NEED ANY PRESCRIPTIONS? YES, BELBUCA, TIZANIDINE, ROBAXIN, LYRICA . IF YES, PLEASE LIST: ____ . ANY NEW PROBLEMS WITH YOUR MEDICATIONS? NO . WHEN DID YOU LAST EAT? ____ . WHEN DID YOU LAST DRINK? ____ . WHAT DID YOU LAST DRINK? ____ . NAME OF PERSON DRIVING YOU HOME? ____ . DO YOU HAVE ANY OTHER QUESTIONS OR CONCERNS NO . VITAL SIGNS WT 292 LBS, HT 65 IN, BMI 48.59 INDEX, BP 120/90 MM HG, HR 52 /MIN, RR 18 /MIN, TEMP 96.3 F, OXYGEN SAT % 98%, NA INITIALS SC 12:34, REVIEWED BY: MING. EXAMINATION : PATIENT IS ALERT O X 3 AND COOPERATIVE. ANTALGIC GAIT. DIFFICULTIES STANDING. LIMPING FROM RIGHT SIDE. ABLE TO FLEX 90 DEGREES AND EXTEND 10 DEGREES. TENDERNESS IN THE LOWER BACK AND PARASPINAL MUSCLE GROUP. RIGHT LEG IS WEAKER THEN THE LEFT AT EXTENSION AND FLEXION. MRI DONE ON 04/02/2015 OF THE LUMBAR SPINE SHOWS POST LAMINECTOMY CHANGES AND A DISC BULGE AT L3-L4. ASSESSMENTS LUMBAR POST-LAMINECTOMY SYNDROME - M96.1 (PRIMARY) TREATMENT LUMBAR POST-LAMINECTOMY SYNDROME REFILL LYRICA CAPSULE, 150 MG, 1 CAPSULE, ORALLY, THREE TIMES DAILY MDD=3, 30 DAY(S), 90, REFILLS 0 CLINICAL NOTES: WE DISCUSSED SEVERAL ISSUES WITH MRS. COSTA'S PAIN MANAGEMENT CASE. AT THIS TIME THE PATIENT WILL CONTINUE WITH THE SAME MEDICATION REGIME BEFORE. PATIENT WILL CONTINUE TO USE THE TIZANIDINE FOR THE MUSCLE SPASMS, ROBAXIN FOR THE MUSCLE STIFFNESS, AND BELBUCA FOR THE SOMATIC PAIN. PATIENT DENIES ABUSE OF ANY MEDICATION, DENIES USE OF ILLEGAL SUBSTANCES, AND STATES SHE IS ONLY USING THE MEDICATION FOR PAIN. WE DISCUSSED DOING A DCS TRIAL WITH THE PATIENT. I DISCUSSED THE RISK AND BENEFITS ASSOCIATED WITH THE PROCEDURE. PATIENT STATES THAT SHE WOULD LIKE TO MOVE FORWARD WITH THE DCS TRIAL. WE NEED TO GET HER PSYCHOLOGICAL EVALUATION RESULTS, THE APPROVAL AND THE MEDICAL CLEARANCE. PATIENT WILL RETURN TO THE CLINIC IN 3 WEEKS. INSTRUCTIONS WERE GIVEN, QUESTIONS WERE ANSWERED, PATIENT REPORTS UNDERSTANDING AND AGREES WITH THE PLAN. I, ZABRINA CHAPMAN, DOCUMENTED THE ABOVE INFORMATION ACTING A SCRIBE FOR DR. HERNDON. I HAVE REVIEWED THE ABOVE DOCUMENT, WRITTEN BY ZABRINA HOIBYin AND I VERIFY THAT IT IS ACCURATE. OTHERS REFILL BELBUCA FILM, 300 MCG, 1 FILM TO THE GUM, BUCALLY, EVERY 12 HRS, 30 DAY(S), 60, REFILLS 0 REFILL TIZANIDINE HCL TABLET, 4 MG, 1 TABLET NEEDED, ORALLY, BEFORE BEDTIME MAY REPEAT IN 5 HRS MDD2, 30 DAY(S), 60, REFILLS 0 REFILL ROBAXIN TABLET, 500 MG, 1 CAP, ORALLY, EVERY 4 HRS PRN FOR SPASMS AND PAIN MDD2, 30 DAY(S), 50, REFILLS 0 PROCEDURE CODES FA211 ESTABILISHED PATIENT [facility] FACILITY CHARGE G8730 PAIN ASSESS POS TOOL F/U PLAN DOC G8427 DOC MEDS VERIFIED W/PT OR RE DISPOSITION & COMMUNICATION FOLLOW UP 3 WEEKS ELECTRONICALLY SIGNED BY KRISTEN HERNDON MD ON 03/12/2017 AT 01:17 PM EST DISCLAIMER : THIS IS A VISIT SUMMARY EXTRACTED FROM THE [employer] CHART. IT IS NOT A COPY OF THE [employer] PROGRESS NOTE. MTDD
== END ==
LOC: M PAIN 12:30
PROVIDERS: ATTEND Anesthesiology
DX: M96.1 Postlaminectomy syndrome, not elsewhere classified (principal); G89.29 Other chronic pain; I10 Essential (primary) hypertension; J45.909 Unspecified asthma, uncomplicated; K21.9 Gastro-esophageal reflux disease without esophagitis; Z79.899 Other long term (current) drug therapy; Z98.84 Bariatric surgery status

== ENCOUNTER → 2017-04-08 | Outpatient (CLI) | payer OTHER | LOC: M PAIN 15:45 | DX: G89.29 Other chronic pain (principal); M96.1 Postlaminectomy syndrome, not elsewhere classified; I10 Essential (primary) hypertension; J45.909 Unspecified asthma, uncomplicated; K21.9 Gastro-esophageal reflux disease without esophagitis; M19.90 Unspecified osteoarthritis, unspecified site; Z79.899 Other long term (current) drug therapy | CPT/HCPCS: G0463 ==

== ENCOUNTER → 2017-05-03 | Outpatient (CLI) | payer OTHER | LOC: M PAIN 08:45 | DX: M96.1 Postlaminectomy syndrome, not elsewhere classified (principal); M54.16 Radiculopathy, lumbar region; I10 Essential (primary) hypertension; J45.909 Unspecified asthma, uncomplicated; K21.9 Gastro-esophageal reflux disease without esophagitis; Z79.899 Other long term (current) drug therapy; J30.2 Other seasonal allergic rhinitis | CPT/HCPCS: G0463 ==

== ENCOUNTER 2017-05-13 10:39 | Day surgery (SDC) | payer OTHER ==
[2017-05-13] MEDS ORDERED: PROPOFOL 200 MG/20 ML VIAL As Ordered (11:06)
[2017-05-13] MEDS ORDERED: MIDAZOLAM INJ 5 MG/ML VIAL (J2250) As Ordered (11:07)
[2017-05-13] MEDS ORDERED: fentaNYL 100 MCG/2 ML INJECTION (J3010) As Ordered ×2 (11:08→14:18)
[2017-05-13] MEDS: LR 1,000 ML IV ×2 (11:15→15:22)
[2017-05-13] MEDS: VANCOMYCIN HCL 1,000 MG, VIAL MATE ADAPTER 1 EACH in D5W 250 ML IV ×2 (12:25→20:59)
[2017-05-13] MEDS: LIDOCAINE W/EPINEPHRINE 1% 20ML VIAL As Ordered (13:52)
[2017-05-13] MEDS: MORPHINE 10 MG/ML 1ML VIAL (J2270) IV ×5 (14:35→15:55)
[2017-05-13] MEDS ORDERED: ONDANSETRON 4MG/2ML VIAL (J2405) IV (15:45)
[2017-05-13] MEDS ORDERED: METOCLOPRAMIDE INJ 10MG/2ML VIAL (J2765) IV (15:45)
[2017-05-13] MEDS ORDERED: NORCO, ANEXSIA 5/325MG TABLET (HYDROcodone/ACETAMINOPHEN) PO (15:45)
[2017-05-13] MEDS: LIDOCAINE 1% SDV 5 ML VIAL SQ (16:53)
[2017-05-13] MEDS ORDERED: IPRATROPIUM 0.5MG/ALBUTEROL 2.5MG INH SOL UD 3ML (DUONEB)(J7620) NEB (19:15)
[2017-05-13] MEDS: NORCO, ANEXSIA 5/325MG TABLET (HYDROcodone/ACETAMINOPHEN) PO (21:13)
[2017-05-13] MEDS: CETIRIZINE (ZyrTEC) 10 MG TAB PO (21:14)
[2017-05-13] MEDS: VENLAFAXINE **XR** 75MG CAPSULE PO (21:14)
[2017-05-13] MEDS: FLUTICASONE PROP 0.05% NASAL SPRAY 16 GM (FLONASE) (21:14)
[2017-05-14] MEDS: VANCOMYCIN HCL 1,000 MG, VIAL MATE ADAPTER 1 EACH in D5W 250 ML IV (03:39)
[2017-05-14] MEDS: NORCO, ANEXSIA 5/325MG TABLET (HYDROcodone/ACETAMINOPHEN) PO (03:47)
[2017-05-14] MEDS ORDERED: METOPROLOL TART 25 MG TABLET PO (09:00)
[2017-05-14] MEDS ORDERED: VENLAFAXINE **XR** 75MG CAPSULE PO (09:00)
[2017-05-14] MEDS: VITAMIN B COMPLEX/VIT C CAP PO (09:08)
[2017-05-14] MEDS: FLUTICASONE PROP 0.05% NASAL SPRAY 16 GM (FLONASE) (09:08)
[2017-05-14] MEDS: MONTELUKAST 10 MG TAB PO (09:08)
[2017-05-14] MEDS: CYANOCOBALAMIN 500 MCG TAB PO (09:08)
[2017-05-14] MEDS: LACTOBACILLUS ACIDOPHILUS CAP (BACID) PO (09:08)
[2017-05-14] MEDS: CETIRIZINE (ZyrTEC) 10 MG TAB PO (09:09)
[2017-05-14] MEDS: MULTIVITAMINS/MINERALS THERAP 1 TAB PO (09:09)
[2017-05-14] MEDS: OMEPRAZOLE 20 MG CAP PO (09:09)
[2017-05-14] MEDS: METOPROLOL SUCC *XL* 25MG TAB (TopROL *XL*) PO (09:10)
== END 2017-05-14 09:57 | disposition home or self-care (01) ==
LOC: M SDC 05-14 09:57 → M MSPAV 16:34
DX: M96.1 Postlaminectomy syndrome, not elsewhere classified (principal); M54.16 Radiculopathy, lumbar region; I10 Essential (primary) hypertension; K21.9 Gastro-esophageal reflux disease without esophagitis; D64.9 Anemia, unspecified; M12.9 Arthropathy, unspecified; M54.2 Cervicalgia; F41.9 Anxiety disorder, unspecified; F32.9 Major depressive disorder, single episode, unspecified; J45.909 Unspecified asthma, uncomplicated; R06.83 Snoring; J30.9 Allergic rhinitis, unspecified; Z79.899 Other long term (current) drug therapy; Z22.322 Carrier or suspected carrier of Methicillin resistant Staphylococcus aureus; Z90.710 Acquired absence of both cervix and uterus; Z87.42 Personal history of other diseases of the female genital tract; Z87.891 Personal history of nicotine dependence; Z98.84 Bariatric surgery status; Z98.1 Arthrodesis status
CPT/HCPCS: 63650

== ENCOUNTER → 2017-05-16 | Outpatient (CLI) | payer OTHER | LOC: M PAIN 12:30 | DX: M96.1 Postlaminectomy syndrome, not elsewhere classified (principal); I10 Essential (primary) hypertension; J45.909 Unspecified asthma, uncomplicated; K21.9 Gastro-esophageal reflux disease without esophagitis; Z79.891 Long term (current) use of opiate analgesic; Z79.899 Other long term (current) drug therapy | CPT/HCPCS: G0463 ==

== ENCOUNTER → 2017-07-01 | Outpatient (CLI) | payer OTHER | LOC: M PAIN 15:15 | DX: M96.1 Postlaminectomy syndrome, not elsewhere classified (principal); M54.16 Radiculopathy, lumbar region; I10 Essential (primary) hypertension; J45.909 Unspecified asthma, uncomplicated; K21.9 Gastro-esophageal reflux disease without esophagitis; M19.90 Unspecified osteoarthritis, unspecified site; Z79.899 Other long term (current) drug therapy | CPT/HCPCS: G0463 ==

== ENCOUNTER → 2017-07-29 | Outpatient (CLI) | payer OTHER | LOC: M PAIN 14:30 | DX: M96.1 Postlaminectomy syndrome, not elsewhere classified (principal); M54.16 Radiculopathy, lumbar region; I10 Essential (primary) hypertension; J45.909 Unspecified asthma, uncomplicated; K21.9 Gastro-esophageal reflux disease without esophagitis; M19.90 Unspecified osteoarthritis, unspecified site; Z79.899 Other long term (current) drug therapy | CPT/HCPCS: G0463 ==

== ENCOUNTER 2017-08-05 06:16 | Day surgery (SDC) | payer OTHER ==
[2017-08-05] MEDS: LR 1,000 ML IV ×2 (06:45→12:54)
[2017-08-05] MEDS: VANCOMYCIN HCL 1,000 MG, VIAL MATE ADAPTER 1 EACH in D5W 250 ML IV ×3 (07:04→23:54)
[2017-08-05] MEDS ORDERED: LIDOCAINE 2% INJ 100 MG/5 ML SDV (FOR ANES.) As Ordered (07:12)
[2017-08-05] MEDS ORDERED: PROPOFOL 200 MG/20 ML VIAL As Ordered ×9 (07:12→11:39)
[2017-08-05] MEDS ORDERED: MIDAZOLAM INJ 2 MG/2 ML VIAL (J2250) As Ordered ×3 (07:13→10:35)
[2017-08-05] MEDS ORDERED: fentaNYL 100 MCG/2 ML INJECTION (J3010) As Ordered ×4 (07:13→12:07)
[2017-08-05] MEDS: VANCOMYCIN HCL 500 MG/10 ML VIAL (J3370) As Ordered (08:54)
[2017-08-05] MEDS ORDERED: ONDANSETRON 4MG/2ML VIAL (J2405) As Ordered (08:55)
[2017-08-05] MEDS: BACITRACIN PWD 50,000 UNITS VIAL As Ordered (08:56)
[2017-08-05] MEDS: THROMBIN SOLN 20,000 UNITS KIT As Ordered (08:57)
[2017-08-05] MEDS: LIDOCAINE W/EPINEPHRINE 1% 20ML VIAL As Ordered ×2 (09:42→10:14)
[2017-08-05] MEDS ORDERED: KETAMINE HCL 200 MG/20 ML VIAL As Ordered (10:49)
[2017-08-05] MEDS: PERCOCET 5MG/325MG TAB PO ×2 (13:10→13:40)
[2017-08-05] MEDS: fentaNYL 100 MCG/2 ML INJECTION (J3010) IV ×4 (13:10→13:25)
[2017-08-05] MEDS ORDERED: oxyCODONE 5MG TAB PO (13:15)
[2017-08-05] MEDS ORDERED: ONDANSETRON 4MG/2ML VIAL (J2405) IV ×2 (13:15→18:15)
[2017-08-05] MEDS ORDERED: METHOCARBAMOL 500 MG TAB PO (14:30)
[2017-08-05] MEDS: oxyCODONE 5MG TAB PO ×2 (14:31→20:34)
[2017-08-05] MEDS: PREGABALIN 75 MG CAP(LYRICA) PO ×2 (16:46→20:23)
[2017-08-05] MEDS: tiZANidine 4 MG TAB PO (20:23)
[2017-08-05] MEDS: FLUTICASONE PROP 0.05% NASAL SPRAY 16 GM (FLONASE) (21:00)
[2017-08-05] MEDS ORDERED: MORPHINE 4 MG/ML 1ML VIAL/SYRINGE (J2270) IV (23:00)
[2017-08-06] MEDS: oxyCODONE 5MG TAB PO ×2 (02:58→09:22)
[2017-08-06] MEDS: VANCOMYCIN HCL 1,000 MG, VIAL MATE ADAPTER 1 EACH in D5W 250 ML IV (06:25)
[2017-08-06] MEDS: ACETAMINOPHEN 500 MG TAB PO (06:25)
[2017-08-06] MEDS ORDERED: VENLAFAXINE **XR** 75MG CAPSULE PO (09:00)
[2017-08-06] MEDS ORDERED: ALBUTEROL SULFATE 2.5 MG/0.5 ML INH NEB SOLN INH (09:00)
[2017-08-06] MEDS: FLUTICASONE PROP 0.05% NASAL SPRAY 16 GM (FLONASE) (09:00)
[2017-08-06 09:01] LABS: HEMOGLOBIN 11.1 g/dl (12.0-15.5); MEAN CORPUSCULAR HEMOGLOBIN 27.7 pg (27.0-33.0); MEAN CORPUSCULAR HGB CONC 32.6 g/dl (32.0-36.5); MEAN CORPUSCULAR VOLUME 84.8 fl (80.0-96.0); PLATELET COUNT, AUTOMATED 214 10^3/uL (150-450); RED BLOOD COUNT 4.01 10^6/uL (4.00-5.40); RED CELL DISTRIBUTION WIDTH 12.9 % (11.5-14.5); WHITE BLOOD COUNT 7.3 10^3/uL (4.0-10.0)
[2017-08-06 09:18] LABS: ANION GAP 6 MEQ/L (8-16); BLOOD UREA NITROGEN 10 MG/DL (7-18); CALCIUM LEVEL 7.9 MG/DL (8.5-10.1); CARBON DIOXIDE LEVEL 32 MEQ/L (21-32); CHLORIDE LEVEL 103 MEQ/L (98-107); CREATININE FOR GFR 0.66 MG/DL (0.55-1.30); GLOMERULAR FILTRATION RATE > 60.0 (>58); GLUCOSE, FASTING 102 MG/DL (70-100); MAGNESIUM LEVEL 2.4 MG/DL (1.8-2.4); POTASSIUM SERUM 3.4 MEQ/L (3.5-5.1); SODIUM LEVEL 141 MEQ/L (136-145)
[2017-08-06] MEDS: METOPROLOL SUCC *XL* 25MG TAB (TopROL *XL*) PO (09:21)
[2017-08-06] MEDS: MONTELUKAST 10 MG TAB PO (09:21)
[2017-08-06] MEDS: CYANOCOBALAMIN 500 MCG TAB PO (09:21)
[2017-08-06] MEDS: VENLAFAXINE **XR** 75MG CAPSULE PO (09:21)
[2017-08-06] MEDS: MULTIVITAMINS/MINERALS THERAP 1 TAB PO (09:22)
[2017-08-06] MEDS: PREGABALIN 75 MG CAP(LYRICA) PO (09:22)
[2017-08-06] MEDS: LACTOBACILLUS ACIDOPHILUS CAP (BACID) PO (09:22)
[2017-08-06] MEDS: OMEPRAZOLE 20 MG CAP PO (09:22)
[2017-08-06] MEDS: POTASSIUM CHLORIDE 10 MEQ SR TABLET PO (13:24)
== END 2017-08-06 14:15 | disposition home or self-care (01) ==
LOC: M SDC 06:16 → M MS5PR 14:00
DX: M96.1 Postlaminectomy syndrome, not elsewhere classified (principal); M54.16 Radiculopathy, lumbar region; I10 Essential (primary) hypertension; K21.9 Gastro-esophageal reflux disease without esophagitis; J45.909 Unspecified asthma, uncomplicated; E66.9 Obesity, unspecified; M19.90 Unspecified osteoarthritis, unspecified site; F41.9 Anxiety disorder, unspecified; F32.9 Major depressive disorder, single episode, unspecified; R06.83 Snoring; D64.9 Anemia, unspecified; Z79.899 Other long term (current) drug therapy; Z86.14 Personal history of Methicillin resistant Staphylococcus aureus infection
CPT/HCPCS: 63685

== ENCOUNTER → 2017-08-15 | Outpatient (CLI) | payer OTHER | LOC: M PAIN 14:00 | DX: G89.29 Other chronic pain (principal); M96.1 Postlaminectomy syndrome, not elsewhere classified; M54.16 Radiculopathy, lumbar region; M54.2 Cervicalgia; I10 Essential (primary) hypertension; J45.909 Unspecified asthma, uncomplicated; K21.9 Gastro-esophageal reflux disease without esophagitis; M19.90 Unspecified osteoarthritis, unspecified site; Z98.1 Arthrodesis status; Z79.899 Other long term (current) drug therapy | CPT/HCPCS: G0463 ==

== ENCOUNTER → 2017-09-06 | Outpatient (CLI) | payer OTHER | LOC: M PAIN 12:30 | DX: M54.2 Cervicalgia (principal); M79.1 Myalgia; M47.812 Spondylosis without myelopathy or radiculopathy, cervical region; M96.1 Postlaminectomy syndrome, not elsewhere classified; M54.16 Radiculopathy, lumbar region; G89.29 Other chronic pain; I10 Essential (primary) hypertension; J45.909 Unspecified asthma, uncomplicated; K21.9 Gastro-esophageal reflux disease without esophagitis; M19.90 Unspecified osteoarthritis, unspecified site; Z79.899 Other long term (current) drug therapy | CPT/HCPCS: G0463 ==

== ENCOUNTER → 2017-11-04 | Outpatient (CLI) | payer OTHER | LOC: M PAIN 11:30 | DX: M96.1 Postlaminectomy syndrome, not elsewhere classified (principal); M54.16 Radiculopathy, lumbar region; M50.20 Other cervical disc displacement, unspecified cervical region; M79.1 Myalgia; I10 Essential (primary) hypertension; J45.909 Unspecified asthma, uncomplicated; K21.9 Gastro-esophageal reflux disease without esophagitis; M19.90 Unspecified osteoarthritis, unspecified site; Z98.84 Bariatric surgery status; Z90.49 Acquired absence of other specified parts of digestive tract; Z98.1 Arthrodesis status; Z79.899 Other long term (current) drug therapy | CPT/HCPCS: G0463 ==

== ENCOUNTER → 2018-01-08 | Outpatient (CLI) | payer OTHER ==
[~2018-01-08] MED LIST: BUPIVACAINE HCL 0.25% 30 ML VIAL As Ordered; TRIAMCINOLONE ACETONIDE SUSP 40 MG/ML VIAL (J3301) As Ordered
== END ==
LOC: M PAIN 10:15
DX: M79.18 Myalgia, other site (principal); M54.5 Low back pain; I10 Essential (primary) hypertension; J45.909 Unspecified asthma, uncomplicated; K21.9 Gastro-esophageal reflux disease without esophagitis; M19.90 Unspecified osteoarthritis, unspecified site; E66.01 Morbid (severe) obesity due to excess calories; Z68.43 Body mass index [BMI] 50.0-59.9, adult; Z79.899 Other long term (current) drug therapy; Z98.84 Bariatric surgery status
CPT/HCPCS: J3301